=== PATIENT | male | born 1955 | race Caucasian/White ===

== ENCOUNTER → 2017-06-29 | Outpatient (CLI) | payer OTHER ==
[~2017-06-29] MED LIST: ACET1TAB86 PO; ASPI81 PO; ASPI81CH CHEW; ATOR40TA49 PO; BACITRACIN TOP OINT 15 GM TUBE ONE; BRIL90TA PO; COMMODE 3-IN-11 MIS; FLUO20CA12 PO; GELFOAM SIZE 100 ONE; GENTAMICIN SULFATE 80 MG/2 ML VIAL ONE; GETGO ROLLING W1 MI1; GNP5TAB6 PO; HYDR-3533 PO; LEVE250 PO; LEVE500T8 PO; LIDOCAINE 1%/EPINEPHrine 1:100,000 SOLN 50 ML VIAL ONE; LIPI40TA PO; LISI-515 PO; LISI5 PO; NAPR250T PO; QUET1TAB7 PO; ST JTAB PO; THROMBIN (TOPICAL) 5,000 UNIT VIAL ONE; TICA90 PO; VALP250 PO; [UNRECOGNIZED DRUG - REMARK]; ceFAZolin 2 GM PREMIX 50 ML ONE; shower chair
[2017-06-29 09:41] LABS: AUTOMATED NEUTROPHIL # 5.1 TH/MM3 (1.8-7.7); BASOPHIL # 0.1 TH/MM3 (0-0.2); BASOPHIL % 0.6 % (0.0-2.0); EOSINOPHIL # 0.6 TH/MM3 (0-0.4); EOSINOPHIL % 6.6 % (0.0-4.0); HEMATOCRIT 39.5 % (39.0-51.0); HEMO FLAGS DIFF FINAL; LYMPH % 25.2 % (9.0-44.0); LYMPHOCYTE # 2.1 TH/MM3 (1.0-4.8); MEAN CELL VOLUME 85.4 FL (80.0-100.0); MEAN CORPUSCULAR HEMOGLOBIN 27.6 PG (27.0-34.0); MEAN CORPUSCULAR HGB CONC 32.3 % (32.0-36.0); MONO % 6.7 % (0.0-8.0); NEUT % 60.9 % (16.0-70.0); PLATELET COUNT 215 TH/MM3 (150-450); RED BLOOD COUNT 4.62 MIL/MM3 (4.50-5.90); WHITE BLOOD COUNT 8.4 TH/MM3 (4.0-11.0)
[2017-06-29 09:41] LABS: BLOOD, URINE NEG (NEG); COMMENT (UR) CULT NOT INDICATED; CULTURE IF INDICATED CULT NOT INDICATED; GLUCOSE,URINE NEG (NEG); KETONE, URINE NEG (NEG); MUCUS URINE FEW /lpf (OCC); NITRITE,URINE NEG (NEG); PH, URINE 5.5 (5.0-8.5); URINE COLOR YELLOW (YELLW/STRAW)
[2017-06-29 09:50] LABS: APTT (PATIENT) 25.9 SEC (24.3-30.1); PROTHROMBIN TIME - PATIENT 10.7 SEC (9.8-11.6)
[2017-06-29 10:09] LABS: ANION GAP 7 MEQ/L (5-15); AST (GOT) 10 U/L (15-37); BICARBONATE 26.2 MEQ/L (21.0-32.0); BLOOD UREA NITROGEN 19 MG/DL (7-18); CHLORIDE 109 MEQ/L (98-107); GLOMERULAR FILTRATION RATE 82 ML/MIN (>89); GLUCOSE,FASTING 91 MG/DL (74-99); POTASSIUM 4.2 MEQ/L (3.5-5.1); SODIUM (NA) 142 MEQ/L (136-145)
[2017-06-29 10:22] LABS: ALKALINE PHOSPHATASE 74 U/L (45-117); ALT (GPT) 18 U/L (12-78); TOTAL BILIRUBIN ADULT 0.2 MG/DL (0.2-1.0)
--- NOTE | 2017-06-30 07:43 | EKG ---
Date Performed: 06/29/2017 Time Performed: 08:44:32 PTAGE: 61 years EKG: SINUS BRADYCARDIA POSSIBLE INFERIOR MYOCARDIAL INFARCTION, PROBABLY OLD BORDERLINE ECG Comp ared to PREVIOUS TRACING , ST-T wave abnormalities have improved. PREVIOUS TRACING 06/25/2016 DOCTOR: Irwin Neely Interpretating Date/Time 06/30/2017 07:42:30
== END ==
LOC: CPRE 07:52
PROVIDERS: ATTEND Neurological Surgery
DX: Z01.810 Encounter for preprocedural cardiovascular examination (principal); Z01.812 Encounter for preprocedural laboratory examination; M95.2 Other acquired deformity of head; S02.19XB Other fracture of base of skull, initial encounter for open fracture; R94.31 Abnormal electrocardiogram [ECG] [EKG]
CPT/HCPCS: 36415; 80053; 81001; 85025; 85610; 85730; 93005; J0690; J1580

== ENCOUNTER 2017-06-30 08:01 | Inpatient (IN) | payer OTHER ==
[~2017-06-30] VITALS: Ht 172.7 cm; Wt 69.2 kg
[~2017-06-30 08:01] MED LIST changes: -ASPI81 PO; -ATOR40TA49 PO; -BACITRACIN TOP OINT 15 GM TUBE ONE; -COMMODE 3-IN-11 MIS; -GELFOAM SIZE 100 ONE; -GENTAMICIN SULFATE 80 MG/2 ML VIAL ONE; -GETGO ROLLING W1 MI1; -HYDR-3533 PO; -LEVE500T8 PO; -LIDOCAINE 1%/EPINEPHrine 1:100,000 SOLN 50 ML VIAL ONE; -LISI5 PO; -ST JTAB PO; -THROMBIN (TOPICAL) 5,000 UNIT VIAL ONE; -TICA90 PO; -[UNRECOGNIZED DRUG - REMARK]; -ceFAZolin 2 GM PREMIX 50 ML ONE; -shower chair
[2017-06-30] MEDS ORDERED: CHLORHEXIDINE GLUCONATE 2 % 1 PACK (2 CLOTHS) TOPICAL PRN (10:45)
[2017-06-30] MEDS ORDERED: VANCOMYCIN HCL 1000 MG ON-CALL/NS 250 ML IV SCH ×2 (10:45)
[2017-06-30] MEDS ORDERED: INSULIN HUMAN REGULAR 1,000 UNITS/10 ML VIAL SQ PRN (10:45)
[2017-06-30] MEDS ORDERED: METOPROLOL TARTRATE 25 MG TAB PO PRN (10:45)
[2017-06-30] MEDS ORDERED: LACTATED RINGER'S 1000 ML IV PRN (10:45)
[2017-06-30] MEDS ORDERED: SODIUM CHLOR 0.9% 1000 ML INJ 1,000 ML IV SCH (10:45)
[2017-06-30] MEDS ORDERED: POVIDONE IODINE 5% (ANTISEPSIS KIT) 4 APPLICATIONS EACH NARE PRN (10:45)
[2017-06-30] MEDS ORDERED: SODIUM CHLORID 0.9% 500 ML IV PRN (10:45)
[2017-06-30] MEDS ORDERED: ARTIFICIAL TEARS OPTH OINT 3.5 APPLIC/3.5 GM TUBO ONE (12:15)
[2017-06-30] MEDS ORDERED: ACETAMINOPHEN 1000 MG/100 ML 100 ML IV ONE (12:15)
[2017-06-30] MEDS ORDERED: ceFAZolin 2 GM PREMIX 50 ML ONE (13:03)
[2017-06-30] MEDS ORDERED: BACITRACIN TOP OINT 15 GM TUBE ONE (13:03)
[2017-06-30] MEDS ORDERED: ACETAMINOPHEN/HYDROcodone 325 MG/10 MG TAB PO PRN ×2 (13:30)
[2017-06-30] MEDS ORDERED: ONDANSETRON HCL 4 MG/2 ML VIAL IV PUSH PRN (13:30)
[2017-06-30] MEDS ORDERED: POTASSIUM CHLOR 20 MEQ PREMIX 100 ML IV PRN (13:30)
[2017-06-30] MEDS ORDERED: MAGNESIUM SULFATE INJ 4 GM in SODIUM CHLORIDE 0.9% INJ 100 ML IV PRN (13:30)
[2017-06-30] MEDS ORDERED: SODIUM CHLORIDE 0.9% FLUSH 5 ML FLUSH IVF PRN (13:30)
[2017-06-30] MEDS ORDERED: BISACODYL 10 MG SUPP RECTAL PRN (13:30)
[2017-06-30] MEDS ORDERED: CALCIUM GLUCONATE 10% 1 GM/10 ML VIAL IV PRN (13:30)
[2017-06-30] MEDS ORDERED: NAPROXEN 250 MG TAB PO PRN (13:30)
[2017-06-30] MEDS ORDERED: MORPHINE SULFATE 4 MG/ML INJ IV PUSH PRN ×2 (13:30)
[2017-06-30] MEDS ORDERED: ACETAMINOPHEN 325 MG TAB PO PRN (13:30)
[2017-06-30] MEDS ORDERED: levETIRAcetam 500 MG/5 ML VIAL IV ONE (14:05)
[2017-06-30] MEDS ORDERED: GENTAMICIN SULFATE 80 MG/2 ML VIAL IRRIGATION ONE (14:56)
[2017-06-30] MEDS ORDERED: GELFOAM SIZE 100 TOPICAL ONE (14:58)
[2017-06-30] MEDS ORDERED: THROMBIN (TOPICAL) 5,000 UNIT VIAL TOPICAL ONE (14:59)
--- NOTE | 2017-06-30 15:12 | HHI.DCPOC ---
Discharge Care Plan Diagnosis: (1) S/P craniofacial reconstruction Goals to Promote Your Health * To prevent worsening of your condition and complications * To maintain your health at the optimal level Directions to Meet Your Goals Take your medications as prescribed Follow your dietary instruction Follow activity as directed Keep your appointments as scheduled Take your immunizations and boosters as scheduled If your symptoms worsen call your PCP, if no PCP go to Urgent Care Center or Emergency Room Smoking is Dangerous to Your Health. Avoid second hand smoke Call the 24-hour hour crisis hotline for domestic abuse at Lydia Gallardo Jun 30, 2017 15:12
--- NOTE | 2017-06-30 15:28 | PD.OP ---
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 A cranioplasty was indicated. The jcuz-yf-iula details of the procedure, indications, alternatives , risks and potential complications were fully discussed with the patient. The patient fully understood. All his questions were answered. No guarantees were given. The patient voiced requesting the procedure and provided informed consents. He was offered the alternative of delaying the procedure and continuing with nonsurgical management. DETAILS OF THE SURGICAL PROCEDURE The patient was endotracheally intubated and mechanically ventilated. A Narvaez catheter, bilateral TALIA hose and sequential compression devices were placed and kept throughout the procedure. The patient was positioned supine on a 3080 table over a soft mattress. The head was placed on a gel doughnut. All pressure points were carefully padded with egg crate mattress. The eyes were tapped shut after ointment was applied by the nesthesiologist to prevent corneal abrasion. A Kaycee hugger was placed over the exposed lower body to maintain control of the core body temperature. The old incision was marked and infiltrated with 1% lidocaine with epinephrine 1:100,000 dilution. The skin incision was made with a #10 blade. Small cranial bleeders were controlled with the bipolar and Kellee clips were applied to the scalp edges. Then, the scalp flap was carefully elevated and retracted anteriorly, exposing the edges of the craniectomy defect. Hemostasis was secured and the incision was irrigated with a large amount of antibiotic solution. Then, the scalp was covered with a moist Ray-Khadra soaked in antibiotic solution and fishhooks were applied to the incision. There was an area of dural defect which was reconstructed using a piece of Duragen. The patient's craniotomy flap was carefully washed with antibiotic solution and a reconstructive cranioplasty was performed by carefully placing autologous bone fragments which were carefully secured using striker plates and screws. The flap was secured using Jania plates and 4 mm screws. A solid placement of the bone was achieved with good very cosmetic result. The incision was thoroughly irrigated with antibiotic solution. The closure was then performed in layers. The temporalis fascia was closed with interrupted 0 Vicryl sutures. The galea was closed with interrupted 3-0 Vicryl sutures. [place] were applied to the skin. A 7 mm Rohan-Stanley drain was left in the subgaleal space and externalized through the a separate stab incision and secured with 3- 0 nylon. A sterile dressing was placed. At the end of the procedure the sponge, needle and instrument counts were all correct. Estimated blood loss was less than 100 cc. No blood transfusion was given. No intraoperative complications occurred. The patient received prophylactic antibiotics. The patient was then transferred to the recovery room in stable condition. Dagoberto Wong MD Jun 30, 2017 15:28
[2017-06-30] MEDS ORDERED: HYDR-3533 PO (15:55)
[2017-06-30] MEDS: QUEtiapine FUMARATE 25 MG TAB PO SCH (16:00)
[2017-06-30] MEDS ORDERED: DO NOT ADM ANY ANTICOAGULANT DRUGS PRN (16:02)
[2017-06-30] MEDS: NS + KCL 20 MEQ INJ 1,000 ML IV SCH ×2 (16:05→23:18)
[2017-06-30] MEDS: ceFAZolin 2 GM PREMIX 50 ML IV SCH (16:47)
[2017-06-30] MEDS ORDERED: *morphine SULFATE 8 MG/ML PERIprocedure ONLY ONE (19:03)
[2017-06-30 20:00] VITALS: BP_SYST 165; BP_SYST 182; BP_DIAS 79; BP_DIAS 82; PULSE 48; RESP 13; TEMP 97.8; O2SAT 99
[2017-06-30 21:00] VITALS: BP 168/83; PULSE 52; RESP 19; O2SAT 97
[2017-06-30] MEDS: TICAGRELOR 90 MG TAB PO SCH (21:00)
[2017-06-30] MEDS: VALPROIC ACID 250 MG CAP PO SCH (21:00)
[2017-06-30] MEDS ORDERED: ATORVASTATIN 40 MG TAB PO SCH (21:00)
[2017-06-30 22:00] VITALS: BP 172/84; PULSE 48; RESP 12; O2SAT 98
[2017-06-30] MEDS: levETIRAcetam 250 MG TAB PO SCH (22:08)
[2017-06-30] MEDS: SODIUM CHLORIDE 0.9% FLUSH 5 ML FLUSH IVF SCH (22:08)
[2017-06-30] MEDS: DOCUSATE SODIUM 100 MG CAP PO SCH (22:08)
[2017-06-30 23:00] VITALS: BP 165/79; PULSE 50; RESP 12; O2SAT 99
[2017-07-01] VITALS (7 sets, daily range): BP systolic 161–193; BP diastolic 84–91; PULSE 48–62; RESP 12–13; TEMP 97.4–97.9; O2SAT 99
[2017-07-01] MEDS: ENALAPRILAT 1.25 MG/ML VIAL IV PUSH PRN ×3 (00:25→08:10)
[2017-07-01] MEDS: ceFAZolin 2 GM PREMIX 50 ML IV SCH ×2 (01:00→08:10)
[2017-07-01] MEDS ORDERED: levETIRAcetam INJ 500 MG in SODIUM CHLORIDE 0.9% INJ 100 ML IV SCH (03:00)
[2017-07-01] MEDS: NS + KCL 20 MEQ INJ 1,000 ML IV SCH (03:18)
[2017-07-01 06:26] LABS: AUTOMATED NEUTROPHIL # 7.6 TH/MM3 (1.8-7.7); BASOPHIL % 0.3 % (0.0-2.0); EOSINOPHIL # 0.4 TH/MM3 (0-0.4); EOSINOPHIL % 4.2 % (0.0-4.0); HEMATOCRIT 36.1 % (39.0-51.0); HEMO FLAGS DIFF FINAL; LYMPHOCYTE # 1.5 TH/MM3 (1.0-4.8); MEAN CELL VOLUME 86.2 FL (80.0-100.0); MEAN CORPUSCULAR HEMOGLOBIN 27.6 PG (27.0-34.0); MONO % 5.8 % (0.0-8.0); NEUT % 74.7 % (16.0-70.0); PLATELET COUNT 171 TH/MM3 (150-450); RED BLOOD COUNT 4.19 MIL/MM3 (4.50-5.90); RED CELL DISTRIBUTION WIDTH 15.2 % (11.6-17.2); WHITE BLOOD COUNT 10.2 TH/MM3 (4.0-11.0)
[2017-07-01 06:57] LABS: BICARBONATE 21.5 MEQ/L (21.0-32.0); POTASSIUM 4.3 MEQ/L (3.5-5.1)
[2017-07-01] MEDS: QUEtiapine FUMARATE 25 MG TAB PO SCH ×2 (07:34)
[2017-07-01] MEDS: TICAGRELOR 90 MG TAB PO SCH (07:35)
[2017-07-01] MEDS: VALPROIC ACID 250 MG CAP PO SCH (08:09)
[2017-07-01] MEDS: levETIRAcetam 250 MG TAB PO SCH (08:10)
[2017-07-01] MEDS: DOCUSATE SODIUM 100 MG CAP PO SCH (08:10)
[2017-07-01] MEDS: SODIUM CHLORIDE 0.9% FLUSH 5 ML FLUSH IVF SCH (08:13)
[2017-07-01] MEDS ORDERED: PANTOPRAZOLE SODIUM 40 MG VIAL IVP SCH (09:00)
[2017-07-01] MEDS ORDERED: PANTOPRAZOLE SOD 40 MG DELAYED RELEASE TAB PO SCH (09:00)
[2017-07-01] MEDS ORDERED: FLUoxetine HCL 20 MG CAP PO SCH (09:00)
[2017-07-01] MEDS ORDERED: LISINOPRIL 20 MG TAB PO SCH (09:00)
[2017-07-01] MEDS ORDERED: cloNIDine HCL 0.1 MG TAB PO ONE (10:45)
[2017-07-01] MEDS ORDERED: BACITRACIN TOP OINT 15 GM TUBE TOPICAL ONE (11:00)
== END 2017-07-01 12:09 | disposition home or self-care (01) | DRG 517 ==
LOC: HSDI 09:40 → N03A 20:25
PROVIDERS: ADMIT Neurological Surgery; ATTEND Neurological Surgery
PROC: 0NS Head and Facial Bones, Reposition (ICD-10-PCS; 2017-06-30)
PROC: 0NS Head and Facial Bones, Reposition (ICD-10-PCS; 2017-06-30)
PROC: 00U20JZ Supplement Dura Mater with Synthetic Substitute, Open Approach (ICD-10-PCS; 2017-06-30)
PROC: 0NS104Z Reposition Frontal Bone with Internal Fixation Device, Open Approach (ICD-10-PCS; principal; 2017-06-30 12:00)
DX: M95.2 Other acquired deformity of head (principal); I10 Essential (primary) hypertension; E78.5 Hyperlipidemia, unspecified; I25.10 Atherosclerotic heart disease of native coronary artery without angina pectoris; F17.210 Nicotine dependence, cigarettes, uncomplicated; F32.9 Major depressive disorder, single episode, unspecified; Z95.5 Presence of coronary angioplasty implant and graft; Z87.820 Personal history of traumatic brain injury; I25.2 Old myocardial infarction
CPT/HCPCS: 80048; 85025; 87641; 94150; J0131; J0690; J1580; J1953; J2270; J3370; J3480; J7050; J7120

== ENCOUNTER 2017-07-02 00:43 | Inpatient (IN) | payer OTHER ==
[2017-07-02] VITALS (17 sets, daily range): BP systolic 110–218; BP diastolic 51–107; PULSE 57–98; RESP 12–26; TEMP 97.8–98.7; O2SAT 98–100
[~2017-07-02] VITALS: Ht 172.7 cm; Wt 68.8 kg
[~2017-07-02 00:43] MED LIST changes: -ACET1TAB86 PO; -GNP5TAB6 PO; +HYDR-3533 PO
--- NOTE | 2017-07-02 00:56 | PD ---
HPI Chief Complaint: Transfer for acute ICH. Time Seen by Provider: 00:53 Travel History International Travel<30 days: No Contact w/Intl Traveler<30days: No History of Present Illness HPI Patient is 61 year old male presents as transfer from OSH for evaluation of acute post-surgical ICH. Accepted by Dr. Lam. Patient aggrevated and confused on arrival. Per EMS seen at outside facility and has acute ICH. Patient unable to provide history. Keenly alert and awake but is GCS of 14 with significant confusion and some innapropriate words. Further history only obtained from records. There is no physician documentation from OSH. However, ems conveys that deidre arrived and was stroke alerted. According to records recently had craniotomy and skull flap replacement. PFSH Past Medical History Hx Anticoagulant Therapy: Yes Arthritis: Yes Asthma: No Autoimmune Disease: No Blood Disorders: No Anxiety: No Depression: No Heart Rhythm Problems: No Cancer: No Cardiac Catheterization: Yes Cardiovascular Problems: Yes ([place] TWO CARDIAC STENTS) High Cholesterol: No Chemotherapy: No Chest Pain: Yes (in past ) Congestive Heart Failure: No COPD: No Cerebrovascular Accident: No Coronary Artery Disease: Yes Diabetes: No Diminished Hearing: No Endocrine: No GERD: No Glaucoma: No Genitourinary: No Headaches: Yes Hepatitis: No Hiatal Hernia: No Immune Disorder: No Kidney Stones: No Musculoskeletal: Yes (KNEES GIVE OUT) Neurologic: Yes (NUMBNESS ONTOP OF CALFS, NUMBNESS R THUMB) Psychiatric: No Reproductive: No Respiratory: No Migraines: No Myocardial Infarction: Yes Radiation Therapy: No Renal Failure: No Seizures: No Sickle Cell Disease: No Sleep Apnea: No Thyroid Disease: No Ulcer: No Past Surgical History Abdominal Surgery: Yes AICD: No Arteriovenous Shunt: No Body Medical Devices: 2 CARDIAC STENT Cardiac Surgery: Yes (stents with SC's X2) Ear Surgery: No Endocrine Surgery: No Eye Surgery: No Genitourinary Surgery: No Gynecologic Surgery: No Insulin Pump: No Joint Replacement: No Neurologic Surgery: No Oral Surgery: No Pacemaker: No Thoracic Surgery: No Social History Alcohol Use: No Tobacco Use: Yes Substance Use: Yes (marijuana daily use, one cigarette daily) Allergies-Medications (Allergen,Severity, Reaction): Coded Allergies: No Known Allergies (Verified , 06/30/17) Reported Meds & Prescriptions Reported Meds & Active Scripts Active Lortab (Hydrocodone-Acetaminophen) 5-325 Mg Tab 1 Tab PO Q8HR PRN Naproxen 250 Mg Tab 250 Mg PO Q8HR PRN Quetiapine (Quetiapine Fumarate) 25 Mg Tab 50 Mg PO Q8H Fluoxetine (Fluoxetine HCl) 20 Mg Capsule 20 Mg PO DAILY Depakene (Valproic Acid) 250 Mg Cap 500 Mg PO Q12HR Lisinopril 20 Mg Tab 20 Mg PO DAILY Reported Keppra (Levetiracetam) 250 Mg Tab 250 Mg PO BID Brilinta (Ticagrelor) 90 Mg Tab 90 Mg PO BID Lipitor (Atorvastatin Calcium) 40 Mg Tab 40 Mg PO HS Aspirin 81 Mg Chew 81 Mg CHEW DAILY Review of Systems ROS Limitations: Altered Mental Status Physical Exam Exam Limitations: Altered Mental Status Narrative GENERAL: WD/WN post surgical dressing in place. SKIN: Warm and dry. HEAD: Post surgical dressing in place. Normocephalic. EYES: Pupils equal and round. No scleral icterus. No injection or drainage. ENT: No nasal bleeding or discharge. Mucous membranes pink and moist. NECK: Trachea midline. No JVD. CARDIOVASCULAR: Regular rate and rhythm. RESPIRATORY: No accessory muscle use. Clear to auscultation. Breath sounds equal bilaterally. GASTROINTESTINAL: Abdomen soft, non-tender, nondistended. Hepatic and splenic margins not palpable. MUSCULOSKELETAL: Extremities without clubbing, cyanosis, or edema. No obvious deformities. NEUROLOGICAL: Awake and alert. GCS of 14. confused, aggrevated, difficult to control PSYCHIATRIC: unable to properly assess. Data Data Orders Orders Admit Order (Ed Use Only) (07/02/17 ) Lorazepam Inj (Ativan Inj) (07/02/17 01:00) Restraints Non-Violent NGUYEN.Q3H (07/02/17 00:53) MDM Medical Decision Making Medical Screen Exam Complete: Yes Emergency Medical Condition: Yes Differential Diagnosis ICH, stroke, post surgical hemorrhage. Narrative Course Patient roomed in ER, d/w dr. lam on arrival, patient requiring restraint to prevent injury from fall and sedation with ativan. Patient to have repeat scan and admit to ICU. Dr. Lam to admit directly. Patient recommended for repeat ct by bob i agree. CD given to radiology for comparison. Diagnosis Primary Impression: Subarachnoid hemorrhage Admitting Information Admitting Physician Requests: Admit Condition: Serious Bill Grady MD Jul 02, 2017 00:56
[2017-07-02] MEDS ORDERED: LORazepam 2 MG/ML VIAL IV PUSH ONE (01:00)
[2017-07-02] MEDS ORDERED: MANNITOL 12.5 GM/50 ML VIAL IV SCH (01:15)
[2017-07-02] MEDS ORDERED: ONDANSETRON HCL 4 MG/2 ML VIAL IV PUSH PRN (01:15)
[2017-07-02] MEDS ORDERED: SODIUM CHLORIDE 0.9% FLUSH 5 ML FLUSH IVF PRN (01:15)
[2017-07-02] MEDS: levETIRAcetam INJ 500 MG in SODIUM CHLORIDE 0.9% INJ 100 ML IV SCH ×3 (01:30→21:34)
--- NOTE | 2017-07-02 01:34 | RADRPT ---
EXAM DATE/TIME: 07/02/2017 01:23 [facility] COMPARISON: No previous studies available for comparison. INDICATIONS : Altered mental status; transfer patient - bleed. RADIATION DOSE: 31.59 CTDIvol (mGy) MEDICAL HISTORY : Cardiovascular disease. Hypertension. Myocardial infarction.Head trauma. Coronary artery disease. SURGICAL HISTORY : None. ENCOUNTER: Initial ACUITY: 1 day PAIN SCALE: 0/10 LOCATION: cranial TECHNIQUE: Multiple contiguous axial images were obtained of the head. Using automated exposure control and adj ustment of the mA and/or kV according to patient size, radiation dose was kept as low as reasonably a chievable to obtain optimal diagnostic quality images. DICOM format image data is available electro nically for review and comparison. FINDINGS: The patient is status post left frontal parietal and temporal craniotomy. There is a moderate to large left subdural hematoma measuring up to approximately 8.6 x 1.5 cm in greatest AP and transvers e diameters. This is of mixed density with areas of low density and smaller more medial acute high-de nsity hemorrhage. There is a focal high density intraparenchymal hemorrhage centered in the left temp oral and parietal lobe measuring up to 3.6 x 2.5 cm. There is surrounding edema. There is mass effect with midline shift to the right of approximately 6 mm. And partial effacement of the left lateral ve ntricle. There is diffuse edema with effacement of the left frontal and parietal sulci. The posterior fossa and brainstem are intact. CONCLUSION: 1. Hyperdense intraparenchymal hemorrhage in the left temporal and parietal lobes with surrounding ed juliann. 2. Mixed density moderate to large left subdural hematoma. 3. Mass effect and midline shift to the right. 4. Postsurgical changes. Oli Ortega MD on July 02, 2017 at 1:28 Board Certified Radiologist. This report was verified electronically.
[2017-07-02] MEDS ORDERED: SODIUM CHLORIDE IV ONE (01:35)
[2017-07-02] MEDS ORDERED: FOSPHENYTOIN IV ONE (01:35)
[2017-07-02] MEDS ORDERED: IOHEXOL 350 MG/ML 10 ML VIAL (for RAD DIAG) IVCONTRAST ONE (05:12)
[2017-07-02] MEDS: QUEtiapine FUMARATE 25 MG TAB PO SCH ×3 (06:00→21:34)
[2017-07-02] MEDS ORDERED: HALOPERIDOL LACTATE 5 MG/ML AMP IV PUSH PRN (08:15)
[2017-07-02] MEDS ORDERED: DEXMEDETOMIDINE HCL 200 MCG/2 ML VIAL IV PUSH ONE (08:15)
[2017-07-02] MEDS ORDERED: DEXMEDETOMIDINE INJ 200 MCG in SODIUM CHLORIDE 0.9% INJ 50 ML IV PRN (08:15)
[2017-07-02] MEDS: LISINOPRIL 20 MG TAB PO SCH (09:00)
[2017-07-02] MEDS: DOCUSATE SODIUM 100 MG CAP PO SCH ×2 (09:00→21:00)
[2017-07-02] MEDS: SODIUM CHLORIDE 0.9% FLUSH 5 ML FLUSH IVF SCH ×2 (09:00→21:00)
[2017-07-02] MEDS: FLUoxetine HCL 20 MG CAP PO SCH (09:00)
[2017-07-02] MEDS: VALPROIC ACID 250 MG CAP PO SCH ×2 (09:00→21:34)
[2017-07-02] MEDS: MANNITOL 12.5 GM/50 ML VIAL IV SCH ×2 (09:14→15:53)
[2017-07-02] MEDS: PANTOPRAZOLE SODIUM 40 MG VIAL IVP SCH (09:16)
--- NOTE | 2017-07-02 09:43 | HHI.NSPN ---
Note Status Status: Progress Note Interval History Interval History Mr. Crain is a 61 year old male who underwent left frontal temporal parietal cranioplasty with replacement of skull flap on 06/30/17. His surgery went well without complications. He was discharged home yesterday in stable conditions. He was brought back to [place] ED last night due to worsening mental status. His reports they were sitting watching TV when he turned his head to hear and had incomprehensible speech. There were no shaking or seizure like activities. A repeat CT Head shows left subdural fluid collection with left temporal intraparenchymal hemorrhage with 6 mm midline shift. His blood pressure on arrival was 218/107. He is currently sedated on Precedex due to agitation. Critical care consulted, he will be started on a cardene drip. He moves all four extremities but reported to have confusion vs dysphasia. Labs, Micro, & Vital Signs Results Date Time Temp Pulse Resp B/P (MAP) Pulse Ox O2 Delivery O2 Flow Rate FiO2 07/02/17 06:00 95 07/02/17 04:00 70 07/02/17 04:00 98.1 70 12 115/66 (82) 99 07/02/17 03:00 73 17 131/67 (88) 99 07/02/17 02:45 97.8 84 26 138/72 (94) 99 07/02/17 01:01 93 22 218/107 (144) 100 Constitutional Vital Signs Date Time Temp Pulse Resp B/P (MAP) Pulse Ox O2 Delivery O2 Flow Rate FiO2 07/02/17 06:00 95 07/02/17 04:00 70 07/02/17 04:00 98.1 70 12 115/66 (82) 99 07/02/17 03:00 73 17 131/67 (88) 99 07/02/17 02:45 97.8 84 26 138/72 (94) 99 07/02/17 01:01 93 22 218/107 (144) 100 Review of Systems ROS Limitations: Clinical Condition, Altered Mental Status Physical Exam Mr. Crain is drowsy on Precedex. Arouses, confused, confused speech. Oriented to name only. Follows only few simple commands. Cranial nerve examination: pupils 3 mm round and reactive to light. Facial motor are normal and symmetrical. Neck is soft and supple Motor: moving all four extremities symmetrically, cannot assess detail exam due to clinical condition. Sensory examination: withdraws to local pain x 4 Bilateral plantar flexion response. Cerebellar examination cannot be assessed due to clinical condition. Medications Current Medications Current Medications Medications (Trade) Dose Ordered Sig/Jyothi Route PRN Reason Start Time Stop Time Status Last Admin Dose Admin IV Flush (NS Flush) 2 ml UNSCH PRN IVF FLUSH AFTER USING IV ACCESS 07/02/17 01:15 IV Flush (NS Flush) 2 ml BID IVF 07/02/17 09:00 07/02/17 09:00 Fosphenytoin Sodium (Cerebyx Inj) 200 mgpe Q12H IV 07/02/17 12:00 Docusate Sodium (Colace) 100 mg BID PO 07/02/17 09:00 Pantoprazole Sodium (Protonix Inj) 40 mg DAILY IVP 07/02/17 09:00 07/02/17 09:16 Ondansetron HCl (Zofran Inj) 4 mg Q6H PRN IV PUSH NAUSEA OR VOMITING 07/02/17 01:15 Fluoxetine HCl (PROzac) 20 mg DAILY PO 07/02/17 09:00 Acetaminophen/ Hydrocodone Bitart ([place] 5-325 Mg) 1 tab Q8HR PRN PO PAIN 07/02/17 01:15 Lisinopril (Prinivil) 20 mg DAILY PO 07/02/17 09:00 Quetiapine Fumarate (SEROquel) 50 mg Q8HR PO 07/02/17 06:00 Valproic Acid (Depakene) 500 mg Q12HR PO 07/02/17 09:00 Levetriacetam 500 mg/Sodium Chloride 105 ml @ 420 mls/hr Q12HR IV 07/02/17 01:30 Mannitol (Mannitol Inj) 12.5 gm Q6H IV 07/02/17 09:00 07/02/17 09:14 Haloperidol Lactate (Haldol Inj) 5 mg Q6H PRN IV PUSH agitation/ delirium 07/02/17 08:15 Dexmedetomidine HCl 200 mcg/ Sodium Chloride 52 ml @ 3.69 mls/hr TITRATE PRN IV SEDATION 07/02/17 08:15 Medical Decision Making MDM Remarks 61 y/o male underwent a left cranioplasty for replacement of skull flap on 06/30 presented back to ED with AMS, CT Head 07/02 with moderate left subdural fluid collection, and left temporal parietal intraparenchymal hemorrhage with 6 mm midline shift hypertensive urgency with blood pressure of 218/107 on arrival acute hemorrhagic CVA ?seizures Plan Plan Remarks CT Brain reviewed by Dr. Wong who recommends a craniotomy for evacuation of subdural and intraparenchymal hematoma will start on Mannitol 25 g, f/u serum os critical care consulted continue blood pressure control per CC keep NPO SCDs and TALIA for DVT prophlyaxis protonix for stress ulcer prophylaxis cont Keppra and Depakene, f/u depakene levels consents obtained from his over the phone Lydia Gallardo Jul 02, 2017 09:43
[2017-07-02] MEDS ORDERED: VANCOMYCIN HCL 1000 MG VIAL ONE (09:51)
[2017-07-02] MEDS ORDERED: THROMBIN (TOPICAL) 5,000 UNIT VIAL ONE (09:51)
[2017-07-02] MEDS ORDERED: ceFAZolin INJ 1,000 MG VIAL ONE (09:52)
[2017-07-02] MEDS ORDERED: GELFOAM SIZE 100 ONE (09:52)
[2017-07-02] MEDS ORDERED: BUPIVACAINE/EPINEPHRINE 0.25% 50 ML VIAL ONE (09:54)
--- NOTE | 2017-07-02 10:17 | HHI.HP ---
[facility] Primary Care Physician Shantanu Goodman DO Chief Complaint: Confusion History of Present Illness Mr. Crain is a 61 year old male who underwent left frontal temporal parietal cranioplasty with replacement of skull flap on 06/30/17. His surgery went well without complications. He was discharged home yesterday in stable conditions. He was brought back to [place] ED last night due to worsening mental status. A repeat CT Head shows left subdural fluid collection with left temporal intraparenchymal hemorrhage with 6 mm midline shift. He is currently sedated on Precedex due to agitation. He moves all four extremities but reported to have confusion vs dysphasia. Past Family Social History Allergies: Coded Allergies: No Known Allergies (Verified , 06/30/17) Past Medical History Hx Anticoagulant Therapy: Yes Arthritis: Yes Asthma: No Autoimmune Disease: No Blood Disorders: No Anxiety: No Depression: No Heart Rhythm Problems: No Cancer: No Cardiac Catheterization: Yes Cardiovascular Problems: Yes ([place] TWO CARDIAC STENTS) High Cholesterol: No Chemotherapy: No Chest Pain: Yes (in past ) Congestive Heart Failure: No COPD: No Cerebrovascular Accident: No Coronary Artery Disease: Yes Diabetes: No Diminished Hearing: No Endocrine: No GERD: No Glaucoma: No Genitourinary: No Headaches: Yes Hepatitis: No Hiatal Hernia: No Immune Disorder: No Kidney Stones: No Musculoskeletal: Yes (KNEES GIVE OUT) Neurologic: Yes (NUMBNESS ONTOP OF CALFS, NUMBNESS R THUMB) Psychiatric: No Reproductive: No Respiratory: No Migraines: No Myocardial Infarction: Yes Radiation Therapy: No Renal Failure: No Seizures: No Sickle Cell Disease: No Sleep Apnea: No Thyroid Disease: No Ulcer: No Past Surgical History Abdominal Surgery: Yes AICD: No Arteriovenous Shunt: No Body Medical Devices: 2 CARDIAC STENT Cardiac Surgery: Yes (stents with RI's X2) Ear Surgery: No Endocrine Surgery: No Eye Surgery: No Genitourinary Surgery: No Gynecologic Surgery: No Insulin Pump: No Joint Replacement: No Neurologic Surgery: No Oral Surgery: No Pacemaker: No Thoracic Surgery: No Family History His family history was reviewed and non conrtibutory Social History Smoking Status: Never Smoker Alcohol Use: Denies Use Substance Use: Yes (marijuana daily use, one cigarette daily) Physical Exam Vital Signs Vital Signs Date Time Temp Pulse Resp B/P (MAP) Pulse Ox O2 Delivery O2 Flow Rate FiO2 07/02/17 06:00 95 07/02/17 04:00 70 07/02/17 04:00 98.1 70 12 115/66 (82) 99 07/02/17 03:00 73 17 131/67 (88) 99 07/02/17 02:45 97.8 84 26 138/72 (94) 99 07/02/17 01:01 93 22 218/107 (144) 100 Physical Exam The patient is alert, confused, oriented to self. Mild expressive aphasia Cranial nerve examination demonstrates the pupils to be equal, round, and reactive to light. Extra-ocular movements are intact with normal convergence. Facial motor function appears normal and symmetrical. Face sensation, hearing, visual renee, and olfaction can not be assessed properly due to the patients condition. The patient has an intact corneal reflex and a gag reflex. Sternocleidomastoid and trapezius have normal and symmetrical strength. Other cranial nerves are intact. Neck is soft and supple. Cervical spine has a normal range of motion of the cervical spine without pain. There is no tenderness to palpation to the spinous processes or paraspinal muscles. Muscle testing reveals normal bulk and tone overall without rigidity, spasticity , fasciculations, or atrophy. Muscle strength is 5/5 in all muscle groups of both upper and lower extremities. Deep tendon reflexes are 1+ and symmetrical in the biceps, triceps, and brachioradialis, bilaterally, in the upper extremities. In the lower extremities , the patellar and Achilles are 1+, bilaterally. There is a bilateral plantar flexion response. Hoffmanns sign is negative. There is no clonus or other abnormal reflexes noted. Cerebellar examination is limited due to the patient condition, but no obvious deficits are noted. Laboratory Laboratory Tests Test 07/02/17 02:00 07/02/17 02:50 Blood Urea Nitrogen 9 Creatinine 0.80 Random Glucose 116 Calcium Level 8.9 Sodium Level 140 Potassium Level 4.0 Chloride Level 107 Carbon Dioxide Level 27.0 Anion Gap 6 Estimat Glomerular Filtration Rate 99 Serum Osmolality 293 Nasal Screen MRSA (PCR) MRSA NOT DETECTED Result Diagram: 07/02/17 0200 Caprini VTE Risk Assessment Caprini Risk Assessment Model Point Value = 1 Point Value = 2 Point Value = 3 Point Value = 5 Age 41-60 Minor surgery BMI > 25 kg/m2 Swollen legs Varicose veins or History of unexplained or recurrent spontaneous Oral contraceptives or hormone replacement Sepsis (< 1 month) Serious lung disease, including pneumonia (< 1 month) Abnormal pulmonary function Acute myocardial infarction Congestive heart failure (< 1 month) History of inflammatory bowel disease Medical patient at bed rest Age 61-74 Arthroscopic surgery Major open surgery (> 45 min) Laparoscopic surgery (> 45 min) Malignancy Confined to bed (> 72 hours) Immobilizing plaster cast Central venous access Age >= 75 History of VTE Family history of VTE Factor V Leiden Prothrombin 44510B Lupus anticoagulant Anticardiolipin antibodies Elevated serum homocysteine Heparin-induced thrombocytopenia Other congenital or acquired thrombophilia Stroke (< 1 month) Elective arthroplasty Hip, pelvis, or leg fracture Acute spinal cord injury (< 1 month) Prophylaxis Regimen Total Risk Factor Score Risk Level Prophylaxis Regimen 0-1 Low Early ambulation 2 Moderate Order ONE of the following: *Sequential Compression Device (SCD) *Heparin 5000 units SQ BID 3-4 Higher Order ONE of the following medications: *Heparin 5000 units SQ TID *Enoxaparin/Lovenox 40 mg SQ daily (WT < 150 kg, CrCl > 30 mL/min) *Enoxaparin/Lovenox 30 mg SQ daily (WT < 150 kg, CrCl > 10-29 mL/min) *Enoxaparin/Lovenox 30 mg SQ BID (WT < 150 kg, CrCl > 30 mL/min) AND/OR *Sequential Compression Device (SCD) 5 or more Highest Order ONE of the following medications: *Heparin 5000 units SQ TID (Preferred with Epidurals) *Enoxaparin/Lovenox 40 mg SQ daily (WT < 150 kg, CrCl > 30 mL/min) *Enoxaparin/Lovenox 30 mg SQ daily (WT < 150 kg, CrCl > 10-29 mL/min) *Enoxaparin/Lovenox 30 mg SQ BID (WT < 150 kg, CrCl > 30 mL/min) AND *Sequential Compression Device (SCD) Assessment and Plan Assessment and Plan 61 y/o male underwent a left cranioplasty for replacement of skull flap on 06/30 presented back to ED with AMS, CT Head 07/02 with moderate left subdural fluid collection with 6 mm midline shift Attending Statement CT Brain reviewed. I recommend a craniotomy for evacuation of subdural hematoma. Informed consent obtained frm his over the phone On Mannitol 25 g every 6 hrts, f/u serum os COnsinue seizure prophylaxis critical care consultation HTN. Treat with antihypertensives as needed Diet NPO protonix for stress ulcer prophylaxis SCDs and TALIA for DVT prophlyaxis Dagoberto Wong MD Jul 02, 2017 10:17
--- NOTE | 2017-07-02 10:52 | PD.CONS ---
[facility] Service Critical Care Medicine Consult Requested By Primary Care Physician Shantanu Goodman DO History of Present Illness 07/02: Mr. Crain is a 61 year old male who underwent left frontal temporal parietal cranioplasty with replacement of skull flap on 06/30/17. He tolerated procedure well was extubated and subsequently admitted to [facility].. He was discharged home on 07/01 by neurosurgery. He was brought back to [place] ED last night due to worsening mental status. A repeat CT Head shows left subdural fluid collection with left temporal intraparenchymal hemorrhage with 6 mm midline shift. Patient was admitted by neurosurgery to [facility] and critical care consult was requested. When I evaluated the patient he was agitated with some speech difficulty and disoriented. I ordered Haldol on Precedex however patient calmed down prior to administration of these meds. He had been initiated on anticonvulsants and mannitol per neurosurgery. I spoke with Dr. Wong personally regarding patient's clinical status and CT findings. He will be emergently taking him to the OR for evacuation of subdural hematoma and intraparenchymal hemorrhage. History was obtained by reviewing records and discussion with nursing staff and Dr. Wong. Past Medical History Hx Anticoagulant Therapy: Yes Arthritis: Yes Asthma: No Autoimmune Disease: No Blood Disorders: No Anxiety: No Depression: No Heart Rhythm Problems: No Cancer: No Cardiac Catheterization: Yes Cardiovascular Problems: Yes ([place] TWO CARDIAC STENTS) High Cholesterol: No Chemotherapy: No Chest Pain: Yes (in past ) Congestive Heart Failure: No COPD: No Cerebrovascular Accident: No Coronary Artery Disease: Yes Diabetes: No Diminished Hearing: No Endocrine: No GERD: No Glaucoma: No Genitourinary: No Headaches: Yes Hepatitis: No Hiatal Hernia: No Immune Disorder: No Kidney Stones: No Musculoskeletal: Yes (KNEES GIVE OUT) Neurologic: Yes (NUMBNESS ONTOP OF CALFS, NUMBNESS R THUMB) Psychiatric: No Reproductive: No Respiratory: No Migraines: No Myocardial Infarction: Yes Radiation Therapy: No Renal Failure: No Seizures: No Sickle Cell Disease: No Sleep Apnea: No Thyroid Disease: No Ulcer: No Past Surgical History Abdominal Surgery: Yes AICD: No Arteriovenous Shunt: No Body Medical Devices: 2 CARDIAC STENT Cardiac Surgery: Yes (stents with MN's X2) Ear Surgery: No Endocrine Surgery: No Eye Surgery: No Genitourinary Surgery: No Gynecologic Surgery: No Insulin Pump: No Joint Replacement: No Neurologic Surgery: No Oral Surgery: No Pacemaker: No Thoracic Surgery: No Social History Alcohol Use: No Tobacco Use: Yes Substance Use: Yes (marijuana daily use, one cigarette daily) Allergies-Medications (Allergen,Severity, Reaction): Coded Allergies: No Known Allergies (Verified , 06/30/17) Reported Meds & Prescriptions Reported Meds & Active Scripts Active Lortab (Hydrocodone-Acetaminophen) 5-325 Mg Tab 1 Tab PO Q8HR PRN Naproxen 250 Mg Tab 250 Mg PO Q8HR PRN Quetiapine (Quetiapine Fumarate) 25 Mg Tab 50 Mg PO Q8H Fluoxetine (Fluoxetine HCl) 20 Mg Capsule 20 Mg PO DAILY Depakene (Valproic Acid) 250 Mg Cap 500 Mg PO Q12HR Lisinopril 20 Mg Tab 20 Mg PO DAILY Reported Keppra (Levetiracetam) 250 Mg Tab 250 Mg PO BID Brilinta (Ticagrelor) 90 Mg Tab 90 Mg PO BID Lipitor (Atorvastatin Calcium) 40 Mg Tab 40 Mg PO HS Aspirin 81 Mg Chew 81 Mg CHEW DAILY Review of Systems ROS Limitations: Clinical Condition Physical Exam Vital Signs Vital Signs Date Time Temp Pulse Resp B/P (MAP) Pulse Ox O2 Delivery O2 Flow Rate FiO2 07/02/17 06:00 95 07/02/17 04:00 70 07/02/17 04:00 98.1 70 12 115/66 (82) 99 07/02/17 03:00 73 17 131/67 (88) 99 07/02/17 02:45 97.8 84 26 138/72 (94) 99 07/02/17 01:01 93 22 218/107 (144) 100 Physical Exam HEENT/Neuro: No pallor or icterus, tongue moist, pupils 3 mm bilaterally reacting actively to light, Awake alert, agitated and disoriented with speech disturbance, nonfocal grossly, moving all 4 extremities Neck: No JVD Chest/pulmonary: CTA bilaterally Cardiovascular: S1-S2 regular no gallop or murmur GI/abdomen: Soft, nontender, bowel sounds present Extremities: Warm bilaterally, no edema Laboratory Laboratory Tests Test 07/02/17 02:00 07/02/17 02:50 Blood Urea Nitrogen 9 Creatinine 0.80 Random Glucose 116 Calcium Level 8.9 Sodium Level 140 Potassium Level 4.0 Chloride Level 107 Carbon Dioxide Level 27.0 Anion Gap 6 Estimat Glomerular Filtration Rate 99 Serum Osmolality 293 Nasal Screen MRSA (PCR) MRSA NOT DETECTED Result Diagram: 07/02/17 0200 Imaging Laboratory Tests Test 07/02/17 02:00 07/02/17 02:50 Blood Urea Nitrogen 9 MG/DL Creatinine 0.80 MG/DL Random Glucose 116 MG/DL Calcium Level 8.9 MG/DL Sodium Level 140 MEQ/L Potassium Level 4.0 MEQ/L Chloride Level 107 MEQ/L Carbon Dioxide Level 27.0 MEQ/L Anion Gap 6 MEQ/L Estimat Glomerular Filtration Rate 99 ML/MIN Serum Osmolality 293 MOSM/KG Nasal Screen MRSA (PCR) MRSA NOT DETECTED Assessment and Plan Assessment and Plan 61-year-old male with: TBI status post left cranioplasty 06/30 Left-sided Subdural hematoma (under flap) left sided intraparenchymal hemorrhage with left to right midline shift Cerebral edema CAD Plan: Neuro: Continue anticonvulsants per neurosurgery. Started on IV mannitol. Taken to OR for evacuation of subdural hematoma and intraparenchymal hematoma by Dr. Wong. Continue neurochecks per ICU protocol. Haldol when necessary for agitation/delirium. Precedex drip as needed. Cardiovascular: Hold all antiplatelet agents. Labetalol when necessary to keep SBP less than 140 mm Hg Pulmonary: Supplemental O2 as needed. Currently protecting airway. Bronchodilators as needed GI/liver: Nothing by mouth for now. Renal/: IV hydration, strict intake output, monitor and replete electrolytes, follow BUN/creatinine. Heme: Follow CBC ID: Perioperative antibiotic prophylaxis per neurosurgery Endocrine: Watch for hyperglycemia, SSI for glycemic control if needed. Prophylaxis: SCDs. No heparin or Lovenox till cleared by neurosurgery in view of intracranial hemorrhage. Condition critical. Patient taken to OR for emergent evacuation of subdural hematoma. Time spent on critical care excluding procedures 40 minutes Kerwin Hernandez MD Jul 02, 2017 10:52
[2017-07-02] MEDS ORDERED: NITROGLYCERIN-D5W 50 MG/250 ML 250 ML ONE (11:01)
[2017-07-02 11:02] LABS: HEMATOCRIT 28.9 % (39.0-51.0); MEAN CELL VOLUME 84.3 FL (80.0-100.0); MEAN CORPUSCULAR HEMOGLOBIN 28.5 PG (27.0-34.0); MEAN CORPUSCULAR HGB CONC 33.8 % (32.0-36.0); PLATELET COUNT 162 TH/MM3 (150-450); RED BLOOD COUNT 3.43 MIL/MM3 (4.50-5.90); RED CELL DISTRIBUTION WIDTH 15.3 % (11.6-17.2); REVIEW FLAG FINAL; WHITE BLOOD COUNT 8.2 TH/MM3 (4.0-11.0)
[2017-07-02 11:24] LABS: APTT (PATIENT) 28.7 SEC (24.3-30.1); PROTHROMBIN TIME - PATIENT 11.4 SEC (9.8-11.6)
[2017-07-02] MEDS ORDERED: FUROSEMIDE 40 MG/4 ML VIAL ONE (11:24)
[2017-07-02] MEDS ORDERED: SODIUM CHLOR 0.9% 250 ML INJ 250 ML IV ONE (12:00)
[2017-07-02] MEDS ORDERED: ESMOLOL HCL 100 MG/10 ML VIAL IV ONE (12:00)
[2017-07-02] MEDS ORDERED: MIDAZOLAM HCL 2 MG/2 ML VIAL IV ONE (12:00)
[2017-07-02] MEDS ORDERED: ONDANSETRON HCL 4 MG/2 ML VIAL IV PUSH ONE (12:00)
[2017-07-02] MEDS ORDERED: LIDOCAINE HCL 1% PF 5 ML AMPULE OTHER ONE (12:00)
[2017-07-02] MEDS ORDERED: PHENYLEPHRINE HCL 10 MG/ML VIAL IV ONE (12:00)
[2017-07-02] MEDS ORDERED: ePHEDrine/NS 25 MG/5 ML SYR IV ONE (12:00)
[2017-07-02] MEDS ORDERED: NORMOSOL R INJ 1,000 ML IV ONE (12:00)
[2017-07-02] MEDS ORDERED: PROPOFOL 200 MG/20 ML AMP IV ONE (12:00)
[2017-07-02] MEDS ORDERED: ROCURONIUM INJ 50 MG/5 ML VIAL IV ONE (12:00)
[2017-07-02] MEDS ORDERED: DEXAMETHASONE SOD PHOS 4 MG/ML VIAL IV ONE (12:00)
[2017-07-02] MEDS ORDERED: PHENYLEPH/NS 1000 MCG/10 ML SYR IV ONE (12:00)
--- NOTE | 2017-07-02 12:25 | RADRPT ---
EXAM DATE/TIME: 07/02/2017 05:02 [facility] COMPARISON: No previous studies available for comparison. INDICATIONS : Subdural hematoma. IV CONTRAST: 100 cc Omnipaque 350 (iohexol) IV ; Cumulative dose for multiple exams. RADIATION DOSE: 13.43 CTDIvol (mGy) ; Combined studies MEDICAL HISTORY : Myocardial infarction. Cardiovascular disease SURGICAL HISTORY : Craniotomy. ENCOUNTER: Subsequent ACUITY: 1 day PAIN SCALE: Non-responsive LOCATION: neck Elevated flow velocities and ICA/CCA ratios have been found to correlate with increased degrees of vessel stenosis, calculated as percentage of diameter relative to a normal segment of distal ICA/CCA. TECHNIQUE: Volumetric scanning was performed using a multirow detector CT scanner. The data was post processed with a variety of visualization algorithms including full-volume maximum intensity projection, multip lanar sliding thin-slab reformation, curved-planar reformation, and surface-rendering techniques. Us ing automated exposure control and adjustment of the mA and/or kV according to patient size, radiatio n dose was kept as low as reasonably achievable to obtain optimal diagnostic quality images. DICOM f ormat image data is available electronically for review and comparison. FINDINGS: AORTIC ARCH: There is a three-vessel origin of the great vessels from the aorta. Mild partially calcified atheroma tous plaque is seen involving the origin of the brachiocephalic, left common carotid, and left subcla vian arteries. 10% luminal narrowing seen at each location. RIGHT CAROTID: The common carotid artery is patent. Noncalcified atheromatous plaque is seen involving the origin of the ICA. Utilizing NASCET criteria there is a 50% stenosis. No ulceration observed. The more cephala d portion of the extracranial ICA and ECA are patent. LEFT CAROTID: The common carotid artery is patent. Calcified plaque is seen involving the origin of the ICA. Utiliz ing NASCET criteria there is a 40% stenosis of the ICA origin. No ulceration observed. The more cepha lad portion of the extracranial ICA and ECA are patent. VERTEBRALS: The right vertebral artery is dominant. No stenotic lesions are seen. Left craniotomy defect. Left subdural fluid collection in the left parietal intraparenchymal hemorrha ge described in the CT of the brain report. CONCLUSION: 1. 50% stenosis the right ICA origin and 40% stenosis of the left ICA origin. 2. Dominant right vertebral artery that is patent. 3. Please see the CT of the brain reported separately. King De Santiago Jr., MD on July 02, 2017 at 12:15 Board Certified Radiologist. This report was verified electronically.
--- NOTE | 2017-07-02 12:36 | RADRPT ---
EXAM DATE/TIME: 07/02/2017 05:02 [facility] COMPARISON: No previous studies available for comparison. INDICATIONS : Follow up intracranial hemorrhage. IV CONTRAST: 100 cc Omnipaque 350 (iohexol) IV ; Cumulative dose for multiple exams. RADIATION DOSE: 13.43 CTDIvol (mGy) ; Combined studies MEDICAL HISTORY : Myocardial infarction. Cardiovascular disease SURGICAL HISTORY : Craniotomy. ENCOUNTER: Subsequent ACUITY: 1 day PAIN SCALE: Non-responsive LOCATION: cranial TECHNIQUE: Volumetric scanning was performed using a multi-row detector CT scanner. The data was post processed with a variety of visualization algorithms including full volume maximum intensity projection, multi -planar sliding thin slab reformation, curved planar reformation, and surface rendering techniques. Using automated exposure control and adjustment of the mA and/or kV according to patient size, radiat ion dose was kept as low as reasonably achievable to obtain optimal diagnostic quality images. DICO M format image data is available electronically for review and comparison. FINDINGS: There is excellent visualization of the major intracranial arteries out to the second-order branch ve ssels. There is no evidence for aneurysm, vessel truncation or stenosis, and no evidence for vascula r malformation. See the CT of the brain reported separately. CONCLUSION: Normal MRA examination. Please see the CT of the brain reported separately. King De Santiago Jr., MD on July 02, 2017 at 12:33 Board Certified Radiologist. This report was verified electronically.
[2017-07-02 13:19] LABS: BLOOD GAS BASE EXCESS -2.1 mmol/L (-2-2); BLOOD GAS CARBOXYHEMOGLOBIN 1.4 % (0-4); BLOOD GAS HCO3 22 mmol/L (22-26); BLOOD GAS METHEMOGLOBIN 1.1 % (0-2); BLOOD GAS O2 HGB SATURATION 97 % (90-100); BLOOD GAS OXYGEN CONTENT 12.5 Vol % (12.0-20.0); BLOOD GAS PCO2 38 mmHg (38-42); BLOOD GAS PO2 227 mmHg (61-120); BLOOD GAS TOTAL HGB 8.7 G/DL (12.0-16.0); CRITICAL VALUE NO; DRAW SITE ART LINE; FIO2 50 %; OXYGEN DEVICE VENTILATOR; STAT NO; TEMP CORR TO 98.6
[2017-07-02] MEDS ORDERED: LABETALOL HCL 100 MG/20 ML VIAL ONE (13:25)
[2017-07-02] MEDS ORDERED: LABETALOL HCL 100 MG/20 ML VIAL IV PUSH PRN (13:30)
[2017-07-02] MEDS ORDERED: niCARdipine INJ 25 MG in SODIUM CHLOR 0.9% 250 ML INJ 240 ML IV PRN (13:30)
[2017-07-02] MEDS: FOSPHENYTOIN SODIUM 100 MG PE/2 ML VIAL IV SCH (15:53)
[2017-07-02] MEDS: SODIUM CHLOR 0.9% 1000 ML INJ 1,000 ML IV SCH (16:00)
--- NOTE | 2017-07-02 17:51 | PD.OP ---
Operative Report Date of Surgery: Jul 03, 2017 Preoperative Diagnosis: Temporal intracerebral hemorrhage Postoperative Diagnosis: Temporal intracerebral hemorrhage Procedure: Left frontotemporoparietal craniotomy, evacuation of inracerebral hemorrhage Anesthesia: general Surgeon: Dagoberto Wong [employer] Specialist(s): Oli Operation and Findings: DETAILS OF THE SURGICAL PROCEDURE After the induction of general anesthesia the patient was endotracheally intubated and mechanically ventilated. A Narvaez catheter, bilateral TALIA hose and sequential compression devices were placed and kept throughout the procedure. The patient was positioned supine on a 3080 table over a soft mattress. The head was placed on a gel doughnut. All pressure points were carefully padded with egg crate mattress. The eyes were tapped shut after ointment was applied by the anesthesiologist to prevent corneal abrasion. A Kaycee hugger was placed over the exposed lower body to maintain control of the core body temperature. The frontotemporal parietal area was shaved, prepped and draped in the usual sterile fashion. A standard inverted question vick incision was outlined on the scalp over the prior incision. The sutures from the skin were cut with a #10 blade down to the level of the periosteum in the frontoparietal region and to the temporalis fascia in the temporal region. Kellee clips were applied to the scalp. Using a Bovie, the temporalis fascia and muscle were incised and a subperiosteal dissection was performed reflecting the scalp flap anteriorly. The scalp was covered with a moist sponge and held in position using fish hooks. The Midas Óscar was brought to the field and a bur hole was made in the temporal region using the craniotome attachment. Then, using the footplate attachment, a large frontotemporoparietal craniotomy flap was elevated. The dura was very thick, with significant scaring. The dura was opened with a 15 blade and metzembaun sissors and retracted with 4-0 Neurolon sutures attached to the fascia. Several layers of fibrous tissue were removed from the dura A left intracerebral hematoma was localized. A small corticotomy was performed with the bipolar and microscissors and the hematoma was readily found , causing significant mass effect. The hematoma was evacuated using microsurgical dissection, with the micro-bipolar forceps, microscissors, micro- suction, and gentle irrigation. The specimen was sent to the lab for histological analysis. Appropriate hemostasis was then secured using the bipolar head up operator helper. Then the incision was irrigated with saline solution. The dural edges were tacked to the bone. The craniotomy flap was then repositioned and secured in place using Striker plates and screws. A 7 millimeter Rohan-Stanley drain was then left in the subgaleal space and externalized through a separate stab incision. The incision was then closed in layers. 0 Vicryl in interrupted sutures were used to close the temporalis fascia. The galea was closed with interrupted 3- 0 Vicryl. [place] were applied to the skin. The drain was secured with a 3-0 nylon. At the end of the procedure, the sponge, needle and instrument counts were all correct. Estimated blood loss was less than 100 cc. No blood transfusion was given. No intraoperative complications occurred. The patient received prophylactic antibiotics. The patient was then transferred to the recovery room in stable condition. Dagoberto Wong MD Jul 02, 2017 17:51
[2017-07-03] VITALS (15 sets, daily range): BP systolic 124–156; BP diastolic 46–84; PULSE 64–78; RESP 11–17; TEMP 98.1–98.8; O2SAT 97–100
[2017-07-03] MEDS: MANNITOL 12.5 GM/50 ML VIAL IV SCH ×5 (00:57→21:31)
[2017-07-03] MEDS: FOSPHENYTOIN SODIUM 100 MG PE/2 ML VIAL IV SCH ×2 (00:58→12:29)
[2017-07-03] MEDS: SODIUM CHLOR 0.9% 1000 ML INJ 1,000 ML IV SCH ×2 (03:42→15:41)
[2017-07-03 04:39] LABS: BASOPHIL % 0.3 % (0.0-2.0); EOSINOPHIL # 0.2 TH/MM3 (0-0.4); EOSINOPHIL % 2.7 % (0.0-4.0); LYMPH % 26.8 % (9.0-44.0); LYMPHOCYTE # 2.2 TH/MM3 (1.0-4.8); MEAN CELL VOLUME 85.1 FL (80.0-100.0); MEAN CORPUSCULAR HEMOGLOBIN 27.8 PG (27.0-34.0); MEAN CORPUSCULAR HGB CONC 32.6 % (32.0-36.0); NEUT % 62.2 % (16.0-70.0); PLATELET COUNT 132 TH/MM3 (150-450); RED BLOOD COUNT 2.42 MIL/MM3 (4.50-5.90); RED CELL DISTRIBUTION WIDTH 15.3 % (11.6-17.2)
[2017-07-03 04:48] LABS: HEMATOCRIT 20.6 % (39.0-51.0); HEMO FLAGS DIFF FINAL
[2017-07-03 04:55] LABS: ANION GAP 11 MEQ/L (5-15); AST (GOT) 11 U/L (15-37); BICARBONATE 23.3 MEQ/L (21.0-32.0); BLOOD UREA NITROGEN 8 MG/DL (7-18); CHLORIDE 108 MEQ/L (98-107); GLOMERULAR FILTRATION RATE 149 ML/MIN (>89); POTASSIUM 3.8 MEQ/L (3.5-5.1); SODIUM (NA) 142 MEQ/L (136-145)
[2017-07-03 04:59] LABS: ALKALINE PHOSPHATASE 56 U/L (45-117); ALT (GPT) 10 U/L (12-78); TOTAL BILIRUBIN ADULT 0.2 MG/DL (0.2-1.0)
--- NOTE | 2017-07-03 05:54 | RADRPT ---
EXAM DATE/TIME: 07/03/2017 05:01 [facility] COMPARISON: CT BRAIN W/O CONTRAST, July 02, 2017, 1:23. INDICATIONS : Follow up subdural hematoma/cerebral edema. RADIATION DOSE: 46.79 CTDIvol (mGy) MEDICAL HISTORY : Cardiovascular disease. Hypertension. Myocardial infarction.Coronary artery disease. SURGICAL HISTORY : None. ENCOUNTER: Subsequent ACUITY: 1 day PAIN SCALE: Non-responsive LOCATION: cranial TECHNIQUE: Multiple contiguous axial images were obtained of the head. Using automated exposure control and adj ustment of the mA and/or kV according to patient size, radiation dose was kept as low as reasonably a chievable to obtain optimal diagnostic quality images. DICOM format image data is available electro nically for review and comparison. FINDINGS: CEREBRUM: There has been placement of a left-sided dural drain. Decreasing subdural hemorrhage measuring 7 mm i n thickness. Left temporal hemorrhage measures 2.5 x 1.9 cm, left prominent. Left-sided craniotomy ag ain seen. Minimal pneumocephaly. The ventricles are normal for age. No evidence of midline shift, ma ss lesion or acute infarction. POSTERIOR FOSSA: The cerebellum and brainstem are intact. The 4th ventricle is midline. The cerebellopontine angle i s unremarkable. EXTRACRANIAL: The visualized portion of the orbits is intact. SKULL: Left-sided craniotomy. CONCLUSION: 1. Decreasing left-sided subdural hemorrhage and left temporal hemorrhage. 2. Placement of a dural drain. 3. No significant midline shift. Ashok Anna MD on July 03, 2017 at 5:48 Board Certified Radiologist. This report was verified electronically.
[2017-07-03] MEDS: QUEtiapine FUMARATE 25 MG TAB PO SCH ×3 (06:53→21:31)
--- NOTE | 2017-07-03 08:21 | HHI.CCPN ---
Subjective Remarks/Hospital Course 07/02: Mr. Crain is a 61 year old male who underwent left frontal temporal parietal cranioplasty with replacement of skull flap on 06/30/17. He tolerated procedure well was extubated and subsequently admitted to [facility].. He was discharged home on 07/01 by neurosurgery. He was brought back to [place] ED last night due to worsening mental status. A repeat CT Head shows left subdural fluid collection with left temporal intraparenchymal hemorrhage with 6 mm midline shift. Patient was admitted by neurosurgery to [facility] and critical care consult was requested. When I evaluated the patient he was agitated with some speech difficulty and disoriented. I ordered Haldol on Precedex however patient calmed down prior to administration of these meds. He had been initiated on anticonvulsants and mannitol per neurosurgery. I spoke with Dr. Wong personally regarding patient's clinical status and CT findings. He will be emergently taking him to the OR for evacuation of subdural hematoma and intraparenchymal hemorrhage. History was obtained by reviewing records and discussion with nursing staff and Dr. Wong. 07/03: Head CT today shows good evacuation of left SDH. Hgb 6.7. Objective Vital Signs Date Time Temp Pulse Resp B/P (MAP) Pulse Ox O2 Delivery O2 Flow Rate FiO2 07/03/17 07:00 Room Air 07/03/17 06:00 70 07/03/17 03:00 98.6 14 133/60 (84) 07/02/17 23:00 99 07/02/17 13:30 21 Intake and Output 07/03/17 07/03/17 07/04/17 08:00 16:00 00:00 Intake Total 1632 ml Output Total 880 ml Balance 752 ml Result Diagram: 07/03/17 0323 07/03/17 0323 Other Results Laboratory Tests Test 07/02/17 13:10 Blood Gas Puncture Site ART LINE Blood Gas Patient Temperature 98.6 Blood Gas HCO3 22 mmol/L (22-26) Blood Gas Base Excess -2.1 mmol/L (-2-2) Blood Gas Oxygen Saturation 97 % (90-100) Arterial Blood pH 7.38 (7.380-7.420) Arterial Blood Partial Pressure CO2 38 mmHg (38-42) Arterial Blood Partial Pressure O2 227 mmHg (61-120) Arterial Blood Oxygen Content 12.5 Vol % (12.0-20.0) Arterial Blood Carboxyhemoglobin 1.4 % (0-4) Arterial Blood Methemoglobin 1.1 % (0-2) Blood Gas Hemoglobin 8.7 G/DL (12.0-16.0) Oxygen Delivery Device VENTILATOR Blood Gas Ventilator Setting AC,12,500,PEEP5 Blood Gas Inspired Oxygen 50 % Imaging Laboratory Tests Test 07/02/17 02:00 07/02/17 02:50 Blood Urea Nitrogen 9 MG/DL Creatinine 0.80 MG/DL Random Glucose 116 MG/DL Calcium Level 8.9 MG/DL Sodium Level 140 MEQ/L Potassium Level 4.0 MEQ/L Chloride Level 107 MEQ/L Carbon Dioxide Level 27.0 MEQ/L Anion Gap 6 MEQ/L Estimat Glomerular Filtration Rate 99 ML/MIN Serum Osmolality 293 MOSM/KG Nasal Screen MRSA (PCR) MRSA NOT DETECTED Objective Remarks HEENT: No pallor or icterus, tongue moist, pupils 3 mm bilaterally reacting actively to light, Neck: No JVD, airway widely patent. Chest/pulmonary: CTA bilaterally Cardiovascular: S1-S2 regular no gallop or murmur GI/abdomen: Soft, nontender, bowel sounds present Extremities: Warm bilaterally, no edema Neuro: wake alert, agitated and disoriented with speech disturbance, nonfocal grossly, moving all 4 extremities A/P Assessment and Plan 61-year-old male with: TBI status post left cranioplasty 06/30 New left-sided subdural hematoma (under flap) left sided intraparenchymal hemorrhage with left to right midline shift Cerebral edema CAD Plan: Neuro: Continue AEDs. Continue IV mannitol. Continue neuro checks per ICU protocol. Haldol when necessary for agitation/delirium. Precedex drip as needed. Cardiovascular: Hold all antiplatelet agents. Labetalol when necessary to keep SBP less than 140 mm Hg Pulmonary: Supplemental O2 as needed. Currently protecting airway. Bronchodilators as needed GI/liver: Nothing by mouth for now. Swallow evaluation. Renal/: IV hydration, strict intake output, monitor and replete electrolytes, follow BUN/creatinine. Heme: Follow Hgb. Transfuse 1 units PRBC. ID: Perioperative antibiotic prophylaxis per neurosurgery Endocrine: Watch for hyperglycemia, SSI for glycemic control if needed. Prophylaxis: SCDs. No heparin or Lovenox till cleared by neurosurgery in view of intracranial hemorrhage. Pepcid. Overall impression: S/P urgent evacuation left subdural hematoma. Stable hemodynamics and respiratory status. Larry Ascencio MD Jul 03, 2017 08:21
[2017-07-03] MEDS: SODIUM CHLORIDE 0.9% FLUSH 5 ML FLUSH IVF SCH ×2 (08:30→21:00)
[2017-07-03] MEDS: DOCUSATE SODIUM 100 MG CAP PO SCH ×2 (08:30→21:32)
[2017-07-03] MEDS: levETIRAcetam INJ 500 MG in SODIUM CHLORIDE 0.9% INJ 100 ML IV SCH ×2 (08:46→21:31)
[2017-07-03] MEDS: PANTOPRAZOLE SODIUM 40 MG VIAL IVP SCH (08:46)
[2017-07-03] MEDS: FLUoxetine HCL 20 MG CAP PO SCH (08:47)
[2017-07-03] MEDS: LISINOPRIL 20 MG TAB PO SCH (08:47)
[2017-07-03] MEDS: VALPROIC ACID 250 MG CAP PO SCH ×2 (08:47→20:32)
--- NOTE | 2017-07-03 11:28 | HHI.NSPN ---
Note Status Status: Progress Note Interval History Interval History Mr. Crain is a 61 year old male who underwent left frontal temporal parietal cranioplasty with replacement of skull flap on 06/30/17. His surgery went well without complications. He was discharged home yesterday in stable conditions. He was brought back to [place] ED last night due to worsening mental status. His reports they were sitting watching TV when he turned his head to hear and had incomprehensible speech. There were no shaking or seizure like activities. A repeat CT Head shows left subdural fluid collection with left temporal intraparenchymal hemorrhage with 6 mm midline shift. His blood pressure on arrival was 218/107. He is currently sedated on Precedex due to agitation. Critical care consulted, he will be started on a cardene drip. He moves all four extremities but reported to have confusion vs dysphasia. 07/03: f/u CT Head completed. dysphasic, moves x 4 ext. hgb 6.8 this am. Labs, Micro, & Vital Signs Results Date Time Temp Pulse Resp B/P (MAP) Pulse Ox O2 Delivery O2 Flow Rate FiO2 07/03/17 11:09 98.5 78 11 137/58 98 07/03/17 08:00 98.4 68 14 141/84 (103) 100 07/03/17 07:00 Room Air 07/03/17 06:00 70 07/03/17 04:00 64 07/03/17 03:00 98.6 64 14 133/60 (84) 07/03/17 02:00 68 07/03/17 00:00 64 07/02/17 23:00 98.4 62 13 122/58 (79) 99 07/02/17 22:00 62 07/02/17 20:00 60 07/02/17 19:00 Room Air 07/02/17 19:00 98.3 60 12 116/52 (73) 07/02/17 18:49 67 167/80 07/02/17 18:00 57 07/02/17 16:00 64 07/02/17 15:00 98.2 61 12 110/51 (70) 99 07/02/17 14:00 60 07/02/17 13:30 100 Room Air 21 07/02/17 13:08 98 50 07/02/17 12:45 50 Constitutional Vital Signs Date Time Temp Pulse Resp B/P (MAP) Pulse Ox O2 Delivery O2 Flow Rate FiO2 07/03/17 11:09 98.5 78 11 137/58 98 07/03/17 08:00 98.4 68 14 141/84 (103) 100 07/03/17 07:00 Room Air 07/03/17 06:00 70 07/03/17 04:00 64 07/03/17 03:00 98.6 64 14 133/60 (84) 07/03/17 02:00 68 07/03/17 00:00 64 07/02/17 23:00 98.4 62 13 122/58 (79) 99 07/02/17 22:00 62 07/02/17 20:00 60 07/02/17 19:00 Room Air 07/02/17 19:00 98.3 60 12 116/52 (73) 07/02/17 18:49 67 167/80 07/02/17 18:00 57 07/02/17 16:00 64 07/02/17 15:00 98.2 61 12 110/51 (70) 99 07/02/17 14:00 60 07/02/17 13:30 100 Room Air 21 07/02/17 13:08 98 50 07/02/17 12:45 50 Review of Systems ROS Limitations: Speech Impaired Physical Exam Mr. Crain is arouses, dysphasic, repeats words. not following to commands. Cranial nerve examination: pupils 3 mm round and reactive to light. Facial motor are normal and symmetrical. Neck is soft and supple Motor: moving all four extremities grossly symmetrically, cannot assess detail exam due to clinical condition Sensory examination: withdraws to local pain x 4 and grimaces Bilateral plantar flexion response. Cerebellar examination cannot be assessed due to clinical condition. Surgical wound with clean head wrap dressing. SULEMA drains #1 with 55 cc output and #2 with 10 cc output overnight. Medications Current Medications Current Medications Medications (Trade) Dose Ordered Sig/Jyothi Route PRN Reason Start Time Stop Time Status Last Admin Dose Admin IV Flush (NS Flush) 2 ml UNSCH PRN IVF FLUSH AFTER USING IV ACCESS 07/02/17 01:15 IV Flush (NS Flush) 2 ml BID IVF 07/02/17 09:00 07/03/17 08:30 Fosphenytoin Sodium (Cerebyx Inj) 200 mgpe Q12H IV 07/02/17 12:00 07/03/17 12:29 Docusate Sodium (Colace) 100 mg BID PO 07/02/17 09:00 Pantoprazole Sodium (Protonix Inj) 40 mg DAILY IVP 07/02/17 09:00 07/03/17 08:46 Ondansetron HCl (Zofran Inj) 4 mg Q6H PRN IV PUSH NAUSEA OR VOMITING 07/02/17 01:15 Fluoxetine HCl (PROzac) 20 mg DAILY PO 07/02/17 09:00 07/03/17 08:47 Acetaminophen/ Hydrocodone Bitart ([place] 5-325 Mg) 1 tab Q8HR PRN PO PAIN 07/02/17 01:15 Lisinopril (Prinivil) 20 mg DAILY PO 07/02/17 09:00 07/03/17 08:47 Quetiapine Fumarate (SEROquel) 50 mg Q8HR PO 07/02/17 06:00 07/03/17 13:42 Valproic Acid (Depakene) 500 mg Q12HR PO 07/02/17 09:00 07/03/17 08:47 Levetriacetam 500 mg/Sodium Chloride 105 ml @ 420 mls/hr Q12HR IV 07/02/17 01:30 07/03/17 08:46 Mannitol (Mannitol Inj) 12.5 gm Q6H IV 07/02/17 09:00 07/03/17 14:55 Haloperidol Lactate (Haldol Inj) 5 mg Q6H PRN IV PUSH agitation/ delirium 07/02/17 08:15 07/03/17 04:11 Dexmedetomidine HCl 200 mcg/ Sodium Chloride 52 ml @ 3.69 mls/hr TITRATE PRN IV SEDATION 07/02/17 08:15 07/02/17 13:15 Labetalol HCl (Trandate Inj) 10 mg Q2HR PRN IV PUSH SBP greater than 150mm Hg 07/02/17 13:30 07/03/17 04:10 Nicardipine HCl 25 mg/Sodium Chloride 250 ml @ 50 mls/hr TITRATE PRN IV Blood pressure management 07/02/17 13:30 07/02/17 18:49 Sodium Chloride 1,000 ml @ 84 mls/hr [id number] IV 07/02/17 16:00 07/03/17 15:41 Medical Decision Making [facility] Remarks 61 y/o male underwent a left cranioplasty for replacement of skull flap on 06/30 presented back to ED with AMS, CT Head 07/02 with moderate left subdural fluid collection, and left temporal parietal intraparenchymal hemorrhage with 6 mm midline shift hypertensive urgency with blood pressure of 218/107 on arrival acute hemorrhagic CVA, ?seizures, subtherapeutic depakene levels f/u CT Head 07/03 with decreasing subdural hemorrhage measuring 7 mm in thickness. Left temporal hemorrhage measures 2.5 x 1.9 cm, left prominent. Left- sided craniotomy again seen. Minimal pneumocephaly. The ventricles are normal for age. No evidence of midline shift, mass lesion or acute infarction. Aphasia Plan Plan Remarks f/u CT Brain this am improved, cont SULEMA draining to continuous suction cont on Mannitol 25 g, f/u serum os critical care following transfusion for low Hgb - f/u H/H cont nonchemichal DVT prophlyaxis in view of ICH protonix for stress ulcer prophylaxis cont Keppra and Depakene, give bolus of depakene, f/u depakene levels Dr. Wong requests Neurology consultation, will obtain EEG dw over the phone Lydia Gallardo Jul 03, 2017 11:28
[2017-07-03] MEDS ORDERED: VALPROIC ACID 250 MG CAP PO ONE (13:15)
--- NOTE | 2017-07-03 17:46 | MG ---
cc: CRISTAL TOVAR M.D. Lab No: Date: 07/03/2017 Age: Sex: M Race: DATE OF 1955, 61 years old EEG NUMBER [id number] REFERRING JONATHAN Gresham. ROOM 1337 Awake, drowsy, asleep with photic stimulation. EEG 03/26/2017 showed some breach rhythms, slowing over the left hemisphere to the left frontal temporal parietal cranioplasty with replacement of skull flap 06/30/2017 with worsening mental status. CT scan showed left subdural fluid collection with left temporal intraparenchymal hemorrhage. MEDICATIONS On: 1. Depakote. 2. Keppra. 3. And others. DESCRIPTION OF RECORD There is overall slowing between 3-4 Hz, background theta. Slightly more slowing over the left compared to the right. Predominately delta frequency over the left. EKG looks sinus. Hyperventilation was performed per chart note. However I do not appreciate any changes. Photic stimulation does elicit a mild driving response. IMPRESSION Abnormal EEG due to moderate slowing consistent with encephalopathic process slightly slower over the left compared to the right without any epileptiform features. Clinical correlation. MD MERY Yan/CAROLIN /4:07 PM /5:38 PM
[2017-07-03] MEDS: ACETAMINOPHEN/HYDROcodone 325 MG/5 MG TAB PO PRN (20:32)
[2017-07-04] VITALS (12 sets, daily range): BP systolic 100–166; BP diastolic 58–90; PULSE 61–78; RESP 11–20; TEMP 98.2–98.8; O2SAT 98–100
[2017-07-04] MEDS ORDERED: SODIUM CHLORIDE 0.9% INJ 50 ML ONE ×2 (00:29→22:09)
[2017-07-04] MEDS: FOSPHENYTOIN SODIUM 100 MG PE/2 ML VIAL IV SCH ×2 (00:30→12:29)
[2017-07-04] MEDS: MANNITOL 12.5 GM/50 ML VIAL IV SCH ×4 (03:06→21:55)
[2017-07-04] MEDS: SODIUM CHLOR 0.9% 1000 ML INJ 1,000 ML IV SCH ×3 (03:45→16:57)
[2017-07-04 06:04] LABS: HEMATOCRIT 24.8 % (39.0-51.0); REVIEW FLAG FINAL
[2017-07-04] MEDS: QUEtiapine FUMARATE 25 MG TAB PO SCH ×3 (06:30→22:25)
[2017-07-04] MEDS: ACETAMINOPHEN/HYDROcodone 325 MG/5 MG TAB PO PRN (07:03)
[2017-07-04] MEDS: VALPROIC ACID 250 MG CAP PO SCH ×2 (08:11→22:06)
[2017-07-04] MEDS: levETIRAcetam INJ 500 MG in SODIUM CHLORIDE 0.9% INJ 100 ML IV SCH ×2 (08:11→22:06)
[2017-07-04] MEDS: FLUoxetine HCL 20 MG CAP PO SCH (08:11)
[2017-07-04] MEDS: LISINOPRIL 20 MG TAB PO SCH (08:11)
[2017-07-04] MEDS: DOCUSATE SODIUM 100 MG CAP PO SCH ×2 (08:11→22:06)
[2017-07-04] MEDS: PANTOPRAZOLE SODIUM 40 MG VIAL IVP SCH (08:11)
[2017-07-04] MEDS: SODIUM CHLORIDE 0.9% FLUSH 5 ML FLUSH IVF SCH ×2 (08:11→21:00)
--- NOTE | 2017-07-04 08:12 | HHI.PR ---
Objective Vital Signs Date Time Temp Pulse Resp B/P (MAP) Pulse Ox O2 Delivery O2 Flow Rate FiO2 07/04/17 06:00 66 07/04/17 04:00 64 07/04/17 04:00 98.4 64 13 112/58 (76) 98 07/04/17 02:00 68 07/04/17 00:00 98.8 78 15 100/62 (75) 98 07/04/17 00:00 78 07/03/17 22:00 78 07/03/17 21:32 17 07/03/17 20:00 78 07/03/17 20:00 98.7 78 17 156/66 (96) 98 07/03/17 19:00 99 Room Air 07/03/17 18:00 78 07/03/17 16:00 98.8 67 13 124/46 (72) 97 07/03/17 16:00 76 07/03/17 14:00 77 07/03/17 12:00 98.1 72 13 138/70 (92) 98 07/03/17 12:00 72 07/03/17 11:20 98.5 77 14 140/58 98 07/03/17 11:09 98.5 78 11 137/58 98 07/03/17 10:00 76 I/O 07/03/17 07/03/17 07/03/17 07/04/17 07/04/17 07/04/17 07:00 15:00 23:00 07:00 15:00 23:00 Intake Total 1632 ml 860 ml 1069 ml 1050 ml Output Total 880 ml 3210 ml 1225 ml Balance 752 ml 860 ml -2141 ml -175 ml Intake IV Total 1632 ml 210 ml 1069 ml 1050 ml Packed Cells 400 ml Blood Product IV Normal Saline Flush 250 ml Output Urine Total 850 ml 3200 ml 1200 ml Drainage Total 30 ml 10 ml 25 ml # Bowel Movements 0 0 0 Result Diagram: 07/04/17 0545 07/04/17 0224 Objective Remarks pupil= awake alert moves all well says yes Assessment and Plan Assessment and Plan imp left ich mri pend eeg neg on keppra ok by me to dc vpa Rodrigo Oleary MD Jul 04, 2017 08:12
--- NOTE | 2017-07-04 08:16 | MB ---
cc: LAMAR JEAN M.D. DATE OF CONSULTATION: 07/03/2017 HISTORY OF PRESENT ILLNESS A 61-year-old right-handed man with a history of hypertension, hypercholesterolemia and an NH about a year ago with a stent. He was on a blood thinner, but he is not sure which one, and also a baby aspirin. On March 15 of this year he was on a ladder, fell off and hit his head and had a subdural hematoma with midline shift, elevated intracranial pressure and subarachnoid hemorrhage. EEG showed some phase reversing on the left side along with a breach rhythm. He was put on Keppra and Dilantin. He was seen by Dr. Clarke. He was fully sedated at that time. He was having some aphasic-type pattern with words at the scene when he had fallen. His blood pressure went up to 205 systolic. He had a scalp laceration. CT of the brain showed a small left-sided subdural 6 mm separation adjacent to the left temporal lobe, bilateral subarachnoid hemorrhage left greater than right, tiny hemorrhagic contusions in both frontal lobes, hemorrhagic contusion in the left temporal lobe. An ICP monitor was placed and then eventually he had a bone flap taken off and he was without the bone flap for the next month or so. He ran some significant high blood pressures during the hospitalization according to his . Finally he was trach'ed and his blood pressure seemed to come down. He then came in for a bone flap replacement on Monday. He seemed to be doing well, went home, and then Monday the day he went home, in the evening he was watching TV and suddenly was not talking well. He came back in. He had a left posterior temporal lobe hemorrhage which appeared to be more posterior than the one he had by CT when he first presented on March 15 of this year. He also had a subdural with some shift and had a drain placed. A CTA of the head was performed which was read as normal. CTA of the neck showed just 50% stenosis on the right, 40% on the left. He had some edema around this hemorrhage, moderate to large left subdural midline shift to the right, left temporal lobe hemorrhage 2.5 x 3.6 cm, 6 mm midline shift, left subdural 8.6 x 1.5 cm. A repeat scan of the head today shows a drain, subdural measuring 7 mm, left temporal hemorrhage 2.5 x 1.9 cm, minimal pneumocephaly. His tells me he was taking the aspirin but had stopped it late last week as far as I can tell, with a history of stents. MEDICATIONS Current medications: 1. Depakote, which has been stopped. 2. Cerebyx 200 q.12h. 3. Colace. 4. Prinivil. 5. Mannitol. 6. Haldol. He had a dose today at 4:00 a.m. 7. Seroquel. 8. Keppra 500 q.12h. His tells me he was on Depakote and Keppra at home. She now says she does not think he was taking aspirin all last week or since his discharge from his first head trauma in March. REVIEW OF SYSTEMS According to his no diabetes, atrial fibrillation, Coumadin. She denies any history of renal, hepatic or pulmonary disease, thyroid disease, lupus, ulcer, cancer, seizure or stroke, prior to all this occurring in March. SOCIAL HISTORY He is a smoker, not a drinker. Lives with his . Occasional marijuana. FAMILY HISTORY Negative for cancer, seizure or stroke. PHYSICAL EXAMINATION VITAL SIGNS: Afebrile. 124/46, 67, 13. Highest blood pressure here was 218/107 yesterday. It was 182/79 on Monday. NECK: There are no carotid bruits. HEART: Regular rhythm. I do not detect a murmur. Pupils are equal. Visual renee are full. Extraocular movements are intact without nystagmus. Face moves symmetrically. Tongue was midline. He moves all four extremities well. Toes are downgoing bilaterally. DTRs are 2+ symmetric throughout. He is awake and alert. He has an expressive and receptive aphasia, however. Some things he can mimic well, but otherwise he cannot. He can stick out his tongue for me and move his arms and legs but he cannot show me his left thumb. He can count fingers but then perseverates on it. LABORATORY He has anemia this morning, hematocrit down to 21, hemoglobin 6.7. White count and platelet count are normal. ABG on the was 7.38, 28, 227. Basic metabolic profile is normal. Serum osmolality 297. LFTs normal. Coags normal. Depakote level 20 today. Dilantin level 9.4 yesterday. UA negative. IMAGING As noted. EEG EEG done today: Moderate slowing, slightly slow on the left, no seizure activity. IMPRESSION Left intracranial hemorrhage, possibly from some shift in the brain and hypertension when the flap was put back on. He is certainly at risk for an intracranial hemorrhage with the trauma and midline shift that he had before in March. RECOMMENDATIONS I would like to get an MRI if possible to make sure there is no infarcts and will do an echocardiogram. Overall I thought he looked well neurologically. He has not had any seizures on this admission. As far as I can tell he has never had a seizure. He probably would be fine just to be on the Keppra, and his EEG being negative today he could probably stop the Depakote. Will check an MRI of the brain if able. MD ANNITA BlanchardM/RICKY /6:59 PM /8:10 AM
--- NOTE | 2017-07-04 08:33 | HHI.CCPN ---
Subjective Remarks/Hospital Course 07/02: Mr. Crain is a 61 year old male who underwent left frontal temporal parietal cranioplasty with replacement of skull flap on 06/30/17. He tolerated procedure well was extubated and subsequently admitted to [facility].. He was discharged home on 07/01 by neurosurgery. He was brought back to [place] ED last night due to worsening mental status. A repeat CT Head shows left subdural fluid collection with left temporal intraparenchymal hemorrhage with 6 mm midline shift. Patient was admitted by neurosurgery to [facility] and critical care consult was requested. When I evaluated the patient he was agitated with some speech difficulty and disoriented. I ordered Haldol on Precedex however patient calmed down prior to administration of these meds. He had been initiated on anticonvulsants and mannitol per neurosurgery. I spoke with Dr. Wong personally regarding patient's clinical status and CT findings. He will be emergently taking him to the OR for evacuation of subdural hematoma and intraparenchymal hemorrhage. History was obtained by reviewing records and discussion with nursing staff and Dr. Wong. 07/03: Head CT today shows good evacuation of left SDH. Hgb 6.7. 07/04: Hgb > 8 after transfusion. SULEMA drains serous. Moves 4 limbs. Objective Vital Signs Date Time Temp Pulse Resp B/P (MAP) Pulse Ox O2 Delivery O2 Flow Rate FiO2 07/04/17 07:00 99 Room Air 07/04/17 06:00 66 07/04/17 04:00 98.4 13 112/58 (76) 07/02/17 13:30 21 Intake and Output 07/04/17 07/04/17 07/05/17 08:00 16:00 00:00 Intake Total 1050 ml Output Total 1225 ml Balance -175 ml Result Diagram: 07/04/17 0545 07/04/17 0224 Imaging Laboratory Tests Test 07/02/17 02:00 07/02/17 02:50 Blood Urea Nitrogen 9 MG/DL Creatinine 0.80 MG/DL Random Glucose 116 MG/DL Calcium Level 8.9 MG/DL Sodium Level 140 MEQ/L Potassium Level 4.0 MEQ/L Chloride Level 107 MEQ/L Carbon Dioxide Level 27.0 MEQ/L Anion Gap 6 MEQ/L Estimat Glomerular Filtration Rate 99 ML/MIN Serum Osmolality 293 MOSM/KG Nasal Screen MRSA (PCR) MRSA NOT DETECTED Objective Remarks HEENT: No pallor or icterus, tongue moist, pupils 3 mm bilaterally reacting actively to light, Neck: No JVD, airway widely patent. Chest/pulmonary: CTA bilaterally Cardiovascular: S1-S2 regular no gallop or murmur GI/abdomen: Soft, nontender, bowel sounds present Extremities: Warm bilaterally, no edema Neuro: wake alert, disoriented with speech disturbance, nonfocal grossly, moving all 4 extremities A/P Assessment and Plan 61-year-old male with: TBI status post left cranioplasty 06/30 New left-sided subdural hematoma (under flap) left sided intraparenchymal hemorrhage with left to right midline shift Cerebral edema CAD Plan: Neuro: Continue AEDs. Continue IV mannitol. Continue neuro checks per ICU protocol. Haldol when necessary for agitation/delirium. Precedex drip as needed. Cardiovascular: Hold all antiplatelet agents. Labetalol when necessary to keep SBP less than 140 mm Hg Pulmonary: Supplemental O2 as needed. Currently protecting airway. Bronchodilators as needed GI/liver: Nothing by mouth for now. Swallow evaluation. Renal/: IV hydration, strict intake output, monitor and replete electrolytes, follow BUN/creatinine. Heme: Follow Hgb. Transfuse 1 units PRBC. ID: Perioperative antibiotic prophylaxis per neurosurgery Endocrine: Watch for hyperglycemia, SSI for glycemic control if needed. Prophylaxis: SCDs. No heparin or Lovenox till cleared by neurosurgery in view of intracranial hemorrhage. Pepcid. Overall impression: S/P urgent evacuation left subdural hematoma. Stable hemodynamics and respiratory status. Remains with speech difficulties. Protects airway. Larry Ascencio MD Jul 04, 2017 08:32
[2017-07-04 09:00] LABS: BICARBONATE 25.2 MEQ/L (21.0-32.0); POTASSIUM 3.5 MEQ/L (3.5-5.1)
[2017-07-04] MEDS ORDERED: GADODIAMIDE PF 287 MG/ML 5 ML VIAL (for RAD MRI) IVCONTRAST ONE (12:21)
--- NOTE | 2017-07-04 13:54 | RADRPT ---
EXAM DATE/TIME: 07/04/2017 12:06 [facility] COMPARISON: CT BRAIN W/O CONTRAST, July 03, 2017, 5:01. INDICATIONS : CVA. Intracranial hemorrhage. CONTRAST: 13 cc Omniscan (gadodiamide) IV MEDICAL HISTORY : Myocardial infarction. SURGICAL HISTORY : Rotator cuff, right. Right knee scope. ENCOUNTER: Subsequent ACUITY: 2 day PAIN SCORE: 3/10 LOCATION: head. TECHNIQUE: Multiplanar, multisequence MRI of the brain was performed both prior to and following the administrat ion of paramagnetic contrast. FINDINGS: CEREBRUM: Parenchymal bleed is again identified in the left temporal lobe with surrounding vasogenic edema. Sta ble 5 mm left to right subfalcine shift. There is a 1 cm subpleural collection which does show some e nhancement following contrast administration. I do not see an enhancing parenchymal mass lesion, moore rebeca WHITE MATTER: Vasogenic edema associated with the left temporal hemorrhage. POSTERIOR FOSSA: The cerebellum and brainstem are intact. The 4th ventricle is midline. The cerebellopontine angle is unremarkable. The cerebellar tonsils are normal in position. DIFFUSION IMAGING: No focal areas of restricted diffusion are seen. No evidence of acute infarction. EXTRACRANIAL: The visualized portions of the orbits and paranasal sinuses are unremarkable. POST-CONTRAST: Subdural enhancement in the region of the left subdural hemorrhage as above. CONCLUSION: 1. Left temporal parenchymal hemorrhage with surrounding vasogenic edema and associated 5 mm left to right subfalcine shift. No significant change. 2. 9-10 mm left subdural hematoma which shows enhancement following contrast administration. 3. No diffusion restriction to suggest an acute infarct. Vince Golden MD on July 04, 2017 at 13:46 Board Certified Radiologist. This report was verified electronically.
--- NOTE | 2017-07-04 16:22 | HHI.NSPN ---
Note Status Status: Progress Note Interval History Interval History Mr. Crain is a 61 year old male who underwent left frontal temporal parietal cranioplasty with replacement of skull flap on 06/30/17. His surgery went well without complications. He was discharged home yesterday in stable conditions. He was brought back to [place] ED last night due to worsening mental status. His reports they were sitting watching TV when he turned his head to hear and had incomprehensible speech. There were no shaking or seizure like activities. A repeat CT Head shows left subdural fluid collection with left temporal intraparenchymal hemorrhage with 6 mm midline shift. His blood pressure on arrival was 218/107. He is currently sedated on Precedex due to agitation. Critical care consulted, he will be started on a cardene drip. He moves all four extremities but reported to have confusion vs dysphasia. 07/03: f/u CT Head completed. dysphasic, moves x 4 ext. hgb 6.8 this am. 07/04 therapeutic depakene levels. awake, moves x 4, persistent speech difficulties. Labs, Micro, & Vital Signs Results Date Time Temp Pulse Resp B/P (MAP) Pulse Ox O2 Delivery O2 Flow Rate FiO2 07/04/17 14:00 66 07/04/17 12:00 66 07/04/17 10:00 67 07/04/17 08:00 98.2 61 11 121/90 (100) 99 07/04/17 08:00 61 07/04/17 07:00 99 Room Air 07/04/17 06:00 66 07/04/17 04:00 64 07/04/17 04:00 98.4 64 13 112/58 (76) 98 07/04/17 02:00 68 07/04/17 00:00 98.8 78 15 100/62 (75) 98 07/04/17 00:00 78 07/03/17 22:00 78 07/03/17 21:32 17 07/03/17 20:00 78 07/03/17 20:00 98.7 78 17 156/66 (96) 98 07/03/17 19:00 99 Room Air 07/03/17 18:00 78 07/05/17 07:00 Intake Total 105 ml Balance 105 ml Constitutional Vital Signs Date Time Temp Pulse Resp B/P (MAP) Pulse Ox O2 Delivery O2 Flow Rate FiO2 07/04/17 14:00 66 07/04/17 12:00 66 07/04/17 10:00 67 07/04/17 08:00 98.2 61 11 121/90 (100) 99 07/04/17 08:00 61 07/04/17 07:00 99 Room Air 07/04/17 06:00 66 07/04/17 04:00 64 07/04/17 04:00 98.4 64 13 112/58 (76) 98 07/04/17 02:00 68 07/04/17 00:00 98.8 78 15 100/62 (75) 98 07/04/17 00:00 78 07/03/17 22:00 78 07/03/17 21:32 17 07/03/17 20:00 78 07/03/17 20:00 98.7 78 17 156/66 (96) 98 07/03/17 19:00 99 Room Air 07/03/17 18:00 78 07/05/17 07:00 Intake Total 105 ml Balance 105 ml Physical Exam Mr. Crain is arouses, dysphasic, repeats words. not following to commands. Cranial nerve examination: pupils 3 mm round and reactive to light. Facial motor are normal and symmetrical. Neck is soft and supple Motor: moving all four extremities grossly symmetrically, cannot assess detail exam due to clinical condition Sensory examination: withdraws to local pain x 4 and grimaces Bilateral plantar flexion response. Cerebellar examination cannot be assessed due to clinical condition. Surgical wound with clean head wrap dressing. SULEMA drains #1 with 25 cc output and #2 with 10 cc output overnight. Medications Current Medications Current Medications Medications (Trade) Dose Ordered Sig/Jyothi Route PRN Reason Start Time Stop Time Status Last Admin Dose Admin IV Flush (NS Flush) 2 ml UNSCH PRN IVF FLUSH AFTER USING IV ACCESS 07/02/17 01:15 IV Flush (NS Flush) 2 ml BID IVF 07/02/17 09:00 07/04/17 08:11 Fosphenytoin Sodium (Cerebyx Inj) 200 mgpe Q12H IV 07/02/17 12:00 07/04/17 12:29 Docusate Sodium (Colace) 100 mg BID PO 07/02/17 09:00 07/03/17 21:32 Pantoprazole Sodium (Protonix Inj) 40 mg DAILY IVP 07/02/17 09:00 07/04/17 08:11 Ondansetron HCl (Zofran Inj) 4 mg Q6H PRN IV PUSH NAUSEA OR VOMITING 07/02/17 01:15 Fluoxetine HCl (PROzac) 20 mg DAILY PO 07/02/17 09:00 07/04/17 08:11 Acetaminophen/ Hydrocodone Bitart ([place] 5-325 Mg) 1 tab Q8HR PRN PO PAIN 07/02/17 01:15 07/04/17 07:03 Lisinopril (Prinivil) 20 mg DAILY PO 07/02/17 09:00 07/04/17 08:11 Quetiapine Fumarate (SEROquel) 50 mg Q8HR PO 07/02/17 06:00 07/04/17 13:29 Valproic Acid (Depakene) 500 mg Q12HR PO 07/02/17 09:00 07/04/17 08:11 Levetriacetam 500 mg/Sodium Chloride 105 ml @ 420 mls/hr Q12HR IV 07/02/17 01:30 07/04/17 08:11 Mannitol (Mannitol Inj) 12.5 gm Q6H IV 07/02/17 09:00 07/04/17 14:30 Haloperidol Lactate (Haldol Inj) 5 mg Q6H PRN IV PUSH agitation/ delirium 07/02/17 08:15 07/03/17 04:11 Dexmedetomidine HCl 200 mcg/ Sodium Chloride 52 ml @ 3.69 mls/hr TITRATE PRN IV SEDATION 07/02/17 08:15 07/02/17 13:15 Labetalol HCl (Trandate Inj) 10 mg Q2HR PRN IV PUSH SBP greater than 150mm Hg 07/02/17 13:30 07/03/17 04:10 Nicardipine HCl 25 mg/Sodium Chloride 250 ml @ 50 mls/hr TITRATE PRN IV Blood pressure management 07/02/17 13:30 07/02/17 18:49 Sodium Chloride 1,000 ml @ 84 mls/hr [id number] IV 07/02/17 16:00 07/04/17 03:45 Medical Decision Making MDM Remarks 61 y/o male underwent a left cranioplasty for replacement of skull flap on 06/30 presented back to ED with AMS, CT Head 07/02 with moderate left subdural fluid collection, and left temporal parietal intraparenchymal hemorrhage with 6 mm midline shift hypertensive urgency with blood pressure of 218/107 on arrival acute hemorrhagic CVA, ?seizures, subtherapeutic depakene levels. EEG negative for seizures f/u CT Head 07/03 with decreasing subdural hemorrhage measuring 7 mm in thickness. Left temporal hemorrhage measures 2.5 x 1.9 cm, left prominent. Left- sided craniotomy again seen. Minimal pneumocephaly. The ventricles are normal for age. No evidence of midline shift, mass lesion or acute infarction. Aphasia Plan Plan Remarks neuro consultation appreciated, MRI Brain pending, cont SULEMA draining x 2 to continuous suction cont on Mannitol, hold serum os greater than 310 critical care following cont nonchemichal DVT prophlyaxis in view of ICH protonix for stress ulcer prophylaxis cont Keppra and Bud, Dr. Wong to defer mgt per neurology cont therapy, PT, OT cont Lydia Ascencio Jul 04, 2017 16:22
[2017-07-05] VITALS (11 sets, daily range): BP systolic 145–168; BP diastolic 63–89; PULSE 63–86; RESP 15–19; TEMP 98.1–98.6; O2SAT 97–100
[2017-07-05] MEDS: FOSPHENYTOIN SODIUM 100 MG PE/2 ML VIAL IV SCH (00:04)
[2017-07-05 02:51] LABS: BICARBONATE 25.7 MEQ/L (21.0-32.0); POTASSIUM 3.5 MEQ/L (3.5-5.1)
[2017-07-05] MEDS: MANNITOL 12.5 GM/50 ML VIAL IV SCH ×2 (03:58→10:11)
[2017-07-05] MEDS: QUEtiapine FUMARATE 25 MG TAB PO SCH ×3 (06:25→21:36)
--- NOTE | 2017-07-05 07:34 | HHI.PR ---
Subjective Remarks no sz acc to nurse Objective Vital Signs Date Time Temp Pulse Resp B/P (MAP) Pulse Ox O2 Delivery O2 Flow Rate FiO2 07/05/17 04:00 98.4 72 15 168/78 (108) 97 07/05/17 04:00 72 07/05/17 02:00 76 07/05/17 00:00 98.6 86 19 155/78 (103) 100 07/05/17 00:00 86 07/04/17 22:00 70 07/04/17 20:00 98.4 78 15 166/70 (102) 100 Automatic Cuff 07/04/17 20:00 78 07/04/17 19:00 99 Room Air 07/04/17 18:00 70 07/04/17 16:00 98.2 74 20 162/79 (106) 99 07/04/17 16:00 74 07/04/17 14:00 66 07/04/17 12:00 66 07/04/17 10:00 67 07/04/17 08:00 98.2 61 11 121/90 (100) 99 07/04/17 08:00 61 I/O 07/04/17 07/04/17 07/04/17 07/05/17 07/05/17 07/05/17 07:00 15:00 23:00 07:00 15:00 23:00 Intake Total 1050 ml 105 ml 480 ml Output Total 1225 ml 2650 ml Balance -175 ml 105 ml -2170 ml Intake Oral 480 ml IV Total 1050 ml 105 ml Output Urine Total 1200 ml 2650 ml Drainage Total 25 ml 0 ml # Bowel Movements 0 0 Result Diagram: 07/04/17 0545 07/05/17 0210 Objective Remarks pupil= awake alert moves all well says yes alfa wu Assessment and Plan Assessment and Plan imp left ich mri no cva mild midline shift ich left temp lobe eeg neg on keppra vpa i dced the dilantin vpa 56 ok oob by me if ok with med team Rodrigo Oleary MD Jul 05, 2017 07:34
[2017-07-05] MEDS: levETIRAcetam INJ 500 MG in SODIUM CHLORIDE 0.9% INJ 100 ML IV SCH ×2 (08:08→21:36)
[2017-07-05] MEDS: FLUoxetine HCL 20 MG CAP PO SCH (08:08)
[2017-07-05] MEDS: SODIUM CHLORIDE 0.9% FLUSH 5 ML FLUSH IVF SCH ×2 (08:08→21:47)
[2017-07-05] MEDS: VALPROIC ACID 250 MG CAP PO SCH ×2 (08:08→21:35)
[2017-07-05] MEDS: LISINOPRIL 20 MG TAB PO SCH (08:08)
[2017-07-05] MEDS: DOCUSATE SODIUM 100 MG CAP PO SCH ×2 (08:08→21:35)
[2017-07-05] MEDS: PANTOPRAZOLE SODIUM 40 MG VIAL IVP SCH (08:08)
--- NOTE | 2017-07-05 08:23 | HHI.CCPN ---
Subjective Remarks/Hospital Course 07/02: Mr. Crain is a 61 year old male who underwent left frontal temporal parietal cranioplasty with replacement of skull flap on 06/30/17. He tolerated procedure well was extubated and subsequently admitted to [facility].. He was discharged home on 07/01 by neurosurgery. He was brought back to [place] ED last night due to worsening mental status. A repeat CT Head shows left subdural fluid collection with left temporal intraparenchymal hemorrhage with 6 mm midline shift. Patient was admitted by neurosurgery to [facility] and critical care consult was requested. When I evaluated the patient he was agitated with some speech difficulty and disoriented. I ordered Haldol on Precedex however patient calmed down prior to administration of these meds. He had been initiated on anticonvulsants and mannitol per neurosurgery. I spoke with Dr. Wong personally regarding patient's clinical status and CT findings. He will be emergently taking him to the OR for evacuation of subdural hematoma and intraparenchymal hemorrhage. History was obtained by reviewing records and discussion with nursing staff and Dr. Wong. 07/03: Head CT today shows good evacuation of left SDH. Hgb 6.7. 07/04: Hgb > 8 after transfusion. SULEMA drains serous. Moves 4 limbs. 07/05: MRI with enhancing SDH and small shift. Electrolytes normal, well hydrated, good perfusion pressure. No change. He is frustrated, struggles with speech. Objective Vital Signs Date Time Temp Pulse Resp B/P (MAP) Pulse Ox O2 Delivery O2 Flow Rate FiO2 07/05/17 06:00 66 07/05/17 04:00 98.4 15 168/78 (108) 97 07/04/17 19:00 Room Air 07/02/17 13:30 21 Intake and Output 07/05/17 07/05/17 07/06/17 08:00 16:00 00:00 Intake Total 100 ml Output Total 815 ml Balance -715 ml Result Diagram: 07/04/17 0545 07/05/17 0210 Imaging Laboratory Tests Test 07/02/17 02:00 07/02/17 02:50 Blood Urea Nitrogen 9 MG/DL Creatinine 0.80 MG/DL Random Glucose 116 MG/DL Calcium Level 8.9 MG/DL Sodium Level 140 MEQ/L Potassium Level 4.0 MEQ/L Chloride Level 107 MEQ/L Carbon Dioxide Level 27.0 MEQ/L Anion Gap 6 MEQ/L Estimat Glomerular Filtration Rate 99 ML/MIN Serum Osmolality 293 MOSM/KG Nasal Screen MRSA (PCR) MRSA NOT DETECTED Objective Remarks HEENT: No pallor or icterus, tongue moist, pupils 3 mm bilaterally reacting actively to light, Neck: No JVD, airway widely patent. Chest/pulmonary: CTA bilaterally Cardiovascular: S1-S2 regular no gallop or murmur GI/abdomen: Soft, nontender, bowel sounds present Extremities: Warm bilaterally, no edema Neuro: wake alert, disoriented with speech disturbance, nonfocal grossly, moving all 4 extremities A/P Assessment and Plan 61-year-old male with: TBI status post left cranioplasty 06/30 New left-sided subdural hematoma (under flap) left sided intraparenchymal hemorrhage with left to right midline shift Cerebral edema CAD Plan: Neuro: Continue AEDs. Continue IV mannitol. Continue neuro checks per ICU protocol. Haldol when necessary for agitation/delirium. Precedex drip as needed. Cardiovascular: Hold all antiplatelet agents. Labetalol when necessary to keep SBP less than 140 mm Hg Pulmonary: Supplemental O2 as needed. Currently protecting airway. Bronchodilators as needed GI/liver: Swallow evaluation. Renal/: IV hydration, strict intake output, monitor and replete electrolytes, follow BUN/creatinine. Heme: Follow Hgb. ID: Perioperative antibiotic prophylaxis per neurosurgery Endocrine: Watch for hyperglycemia, SSI for glycemic control if needed. Prophylaxis: SCDs. No heparin or Lovenox till cleared by neurosurgery in view of intracranial hemorrhage. Pepcid. Overall impression: S/P urgent evacuation left subdural hematoma. Stable hemodynamics and respiratory status. Remains with speech difficulties. Protects airway. BP control acceptable. Larry Ascencio MD Jul 05, 2017 08:22
[2017-07-05] MEDS ORDERED: MORPHINE SULFATE 2 MG/ML INJ ONE (10:53)
[2017-07-05] MEDS ORDERED: MORPHINE SULFATE 4 MG/ML INJ IV PUSH ONE (11:00)
--- NOTE | 2017-07-05 11:01 | HHI.NSPN ---
Note Status Status: Progress Note Interval History Interval History Mr. Crain is a 61 year old male who underwent left frontal temporal parietal cranioplasty with replacement of skull flap on 06/30/17. His surgery went well without complications. He was discharged home yesterday in stable conditions. He was brought back to [place] ED last night due to worsening mental status. His reports they were sitting watching TV when he turned his head to hear and had incomprehensible speech. There were no shaking or seizure like activities. A repeat CT Head shows left subdural fluid collection with left temporal intraparenchymal hemorrhage with 6 mm midline shift. His blood pressure on arrival was 218/107. He is currently sedated on Precedex due to agitation. Critical care consulted, he will be started on a cardene drip. He moves all four extremities but reported to have confusion vs dysphasia. 07/03: f/u CT Head completed. dysphasic, moves x 4 ext. hgb 6.8 this am. 07/04 therapeutic depakene levels. awake, moves x 4, persistent speech difficulties. 07/05: speech improving. denies significant headaches, focal weakness, vomiting , seizures. minimal SULEMA drains output. Labs, Micro, & Vital Signs Results Date Time Temp Pulse Resp B/P (MAP) Pulse Ox O2 Delivery O2 Flow Rate FiO2 07/05/17 10:00 72 07/05/17 08:00 74 07/05/17 08:00 98.1 74 16 161/83 (109) 100 07/05/17 07:00 99 Room Air 07/05/17 06:00 66 07/05/17 04:00 98.4 72 15 168/78 (108) 97 07/05/17 04:00 72 07/05/17 02:00 76 07/05/17 00:00 98.6 86 19 155/78 (103) 100 07/05/17 00:00 86 07/04/17 22:00 70 07/04/17 20:00 98.4 78 15 166/70 (102) 100 Automatic Cuff 07/04/17 20:00 78 07/04/17 19:00 99 Room Air 07/04/17 18:00 70 07/04/17 16:00 98.2 74 20 162/79 (106) 99 07/04/17 16:00 74 07/04/17 14:00 66 07/04/17 12:00 66 Constitutional Vital Signs Date Time Temp Pulse Resp B/P (MAP) Pulse Ox O2 Delivery O2 Flow Rate FiO2 07/05/17 10:00 72 07/05/17 08:00 74 07/05/17 08:00 98.1 74 16 161/83 (109) 100 07/05/17 07:00 99 Room Air 07/05/17 06:00 66 07/05/17 04:00 98.4 72 15 168/78 (108) 97 07/05/17 04:00 72 07/05/17 02:00 76 07/05/17 00:00 98.6 86 19 155/78 (103) 100 07/05/17 00:00 86 07/04/17 22:00 70 07/04/17 20:00 98.4 78 15 166/70 (102) 100 Automatic Cuff 07/04/17 20:00 78 07/04/17 19:00 99 Room Air 07/04/17 18:00 70 07/04/17 16:00 98.2 74 20 162/79 (106) 99 07/04/17 16:00 74 07/04/17 14:00 66 07/04/17 12:00 66 Review of Systems Constitutional: DENIES: Fever Cardiovascular: DENIES: Chest pain Neurologic: COMPLAINS OF: Headache (mild), Speech Problems, DENIES: Localized weakness Physical Exam Mr. Crain is arouses, dysphasic, repeats words. not following to commands. Cranial nerve examination: pupils 3 mm round and reactive to light. Facial motor are normal and symmetrical. Neck is soft and supple Motor: moving all four extremities grossly symmetrically, cannot assess detail exam due to clinical condition Sensory examination: withdraws to local pain x 4 and grimaces Bilateral plantar flexion response. Cerebellar examination cannot be assessed due to clinical condition. Surgical wound with clean head wrap dressing. SULEMA drains #1 with 15 cc output and #2 with 0 cc output overnight. Medications Current Medications Current Medications Medications (Trade) Dose Ordered Sig/Jyothi Route PRN Reason Start Time Stop Time Status Last Admin Dose Admin IV Flush (NS Flush) 2 ml UNSCH PRN IVF FLUSH AFTER USING IV ACCESS 07/02/17 01:15 IV Flush (NS Flush) 2 ml BID IVF 07/02/17 09:00 07/05/17 08:08 Docusate Sodium (Colace) 100 mg BID PO 07/02/17 09:00 07/05/17 08:08 Pantoprazole Sodium (Protonix Inj) 40 mg DAILY IVP 07/02/17 09:00 07/05/17 08:08 Ondansetron HCl (Zofran Inj) 4 mg Q6H PRN IV PUSH NAUSEA OR VOMITING 07/02/17 01:15 Fluoxetine HCl (PROzac) 20 mg DAILY PO 07/02/17 09:00 07/05/17 08:08 Acetaminophen/ Hydrocodone Bitart ([place] 5-325 Mg) 1 tab Q8HR PRN PO PAIN 07/02/17 01:15 07/04/17 07:03 Lisinopril (Prinivil) 20 mg DAILY PO 07/02/17 09:00 07/05/17 08:08 Quetiapine Fumarate (SEROquel) 50 mg Q8HR PO 07/02/17 06:00 07/05/17 06:25 Valproic Acid (Depakene) 500 mg Q12HR PO 07/02/17 09:00 07/05/17 08:08 Levetriacetam 500 mg/Sodium Chloride 105 ml @ 420 mls/hr Q12HR IV 07/02/17 01:30 07/05/17 08:08 Mannitol (Mannitol Inj) 12.5 gm Q6H IV 07/02/17 09:00 07/05/17 12:00 07/05/17 10:11 Haloperidol Lactate (Haldol Inj) 5 mg Q6H PRN IV PUSH agitation/ delirium 07/02/17 08:15 07/03/17 04:11 Dexmedetomidine HCl 200 mcg/ Sodium Chloride 52 ml @ 3.69 mls/hr TITRATE PRN IV SEDATION 07/02/17 08:15 07/02/17 13:15 Labetalol HCl (Trandate Inj) 10 mg Q2HR PRN IV PUSH SBP greater than 150mm Hg 07/02/17 13:30 07/03/17 04:10 Nicardipine HCl 25 mg/Sodium Chloride 250 ml @ 50 mls/hr TITRATE PRN IV Blood pressure management 07/02/17 13:30 07/02/17 18:49 Sodium Chloride 1,000 ml @ 0 mls/hr [id number] IV 07/02/17 16:00 07/04/17 16:57 Morphine Sulfate (Morphine Inj) 1 mg NOW ONCE IV PUSH 07/05/17 11:00 07/05/17 11:01 UNV Medical Decision Making MDM Remarks 61 y/o male underwent a left cranioplasty for replacement of skull flap on 06/30 presented back to ED with AMS, CT Head 07/02 with moderate left subdural fluid collection, and left temporal parietal intraparenchymal hemorrhage with 6 mm midline shift hypertensive urgency with blood pressure of 218/107 on arrival acute hemorrhagic CVA, ?seizures, subtherapeutic depakene levels. EEG negative for seizures f/u CT Head 07/03 with decreasing subdural hemorrhage measuring 7 mm in thickness. Left temporal hemorrhage measures 2.5 x 1.9 cm, left prominent. Left- sided craniotomy again seen. Minimal pneumocephaly. The ventricles are normal for age. No evidence of midline shift, mass lesion or acute infarction. MRI Brain reviewed by Dr. Wong, improved left temporal ICH with thickened left dura Aphasia, improving Plan Plan Remarks neuro consultation appreciated, MRI Brain reviewed by Dr. Wong SULEMA drains x 2 dc'ed. dc Mannitol, cont therapy, PT, OT. ambulate- mobilize out of bed to chair clear to transfer out of unit to 5N near nursing station cont nonchemichal DVT prophlyaxis in view of ICH protonix for stress ulcer prophylaxis cont Dr. Marvin Krause to defer mgt per neurology cont Lydia Ascencio Jul 05, 2017 11:01
[2017-07-06 00:47] VITALS: BP 143/66; PULSE 74; RESP 17; TEMP 98.2; O2SAT 98
[2017-07-06 05:21] VITALS: BP 114/67; PULSE 72; RESP 17; TEMP 98.3; O2SAT 97
[2017-07-06] MEDS: QUEtiapine FUMARATE 25 MG TAB PO SCH ×2 (06:33→13:23)
[2017-07-06 08:15] VITALS: BP 145/76; PULSE 76; RESP 18; TEMP 97.7; O2SAT 98
[2017-07-06] MEDS: DOCUSATE SODIUM 100 MG CAP PO SCH (08:35)
[2017-07-06] MEDS: LISINOPRIL 20 MG TAB PO SCH (08:36)
[2017-07-06] MEDS: VALPROIC ACID 250 MG CAP PO SCH (08:36)
[2017-07-06] MEDS: FLUoxetine HCL 20 MG CAP PO SCH (08:36)
[2017-07-06] MEDS: PANTOPRAZOLE SODIUM 40 MG VIAL IVP SCH (08:36)
[2017-07-06] MEDS: levETIRAcetam INJ 500 MG in SODIUM CHLORIDE 0.9% INJ 100 ML IV SCH (08:37)
[2017-07-06] MEDS: SODIUM CHLORIDE 0.9% FLUSH 5 ML FLUSH IVF SCH (08:38)
[2017-07-06 12:13] VITALS: BP 139/83; PULSE 83; RESP 18; TEMP 98; O2SAT 99
--- NOTE | 2017-07-06 12:20 | HHI.NSPN ---
Note Status Status: Progress Note Interval History Interval History Mr. Crain is a 61 year old male who underwent left frontal temporal parietal cranioplasty with replacement of skull flap on 06/30/17. His surgery went well without complications. He was discharged home yesterday in stable conditions. He was brought back to [place] ED last night due to worsening mental status. His reports they were sitting watching TV when he turned his head to hear and had incomprehensible speech. There were no shaking or seizure like activities. A repeat CT Head shows left subdural fluid collection with left temporal intraparenchymal hemorrhage with 6 mm midline shift. His blood pressure on arrival was 218/107. He is currently sedated on Precedex due to agitation. Critical care consulted, he will be started on a cardene drip. He moves all four extremities but reported to have confusion vs dysphasia. 07/03: f/u CT Head completed. dysphasic, moves x 4 ext. hgb 6.8 this am. 07/04 therapeutic depakene levels. awake, moves x 4, persistent speech difficulties. 07/05: speech improving. denies significant headaches, focal weakness, vomiting , seizures. minimal SULEMA drains output. 07/06: pt adamant to going home today, reports feels well. no acute events overnight. Labs, Micro, & Vital Signs Results Date Time Temp Pulse Resp B/P (MAP) Pulse Ox O2 Delivery O2 Flow Rate FiO2 07/06/17 12:13 98.0 83 18 139/83 (101) 99 07/06/17 08:51 Room Air 07/06/17 08:15 97.7 76 18 145/76 (99) 98 07/06/17 05:21 98.3 72 17 114/67 (83) 97 07/06/17 00:47 98.2 74 17 143/66 (91) 98 07/05/17 23:31 Room Air 07/05/17 20:10 98.1 73 17 155/79 (104) 98 07/05/17 18:00 71 07/05/17 16:00 69 07/05/17 16:00 98.3 76 17 145/63 (90) 100 07/05/17 14:00 63 Constitutional Vital Signs Date Time Temp Pulse Resp B/P (MAP) Pulse Ox O2 Delivery O2 Flow Rate FiO2 07/06/17 12:13 98.0 83 18 139/83 (101) 99 07/06/17 08:51 Room Air 07/06/17 08:15 97.7 76 18 145/76 (99) 98 07/06/17 05:21 98.3 72 17 114/67 (83) 97 07/06/17 00:47 98.2 74 17 143/66 (91) 98 07/05/17 23:31 Room Air 07/05/17 20:10 98.1 73 17 155/79 (104) 98 07/05/17 18:00 71 07/05/17 16:00 69 07/05/17 16:00 98.3 76 17 145/63 (90) 100 07/05/17 14:00 63 Physical Exam Myatovich is arouses, dysphasic, repeats words. not following to commands. Cranial nerve examination: pupils 3 mm round and reactive to light. Facial motor are normal and symmetrical. Neck is soft and supple Motor: moving all four extremities grossly symmetrically, cannot assess detail exam due to clinical condition Sensory examination: withdraws to local pain x 4 and grimaces Bilateral plantar flexion response. Cerebellar examination cannot be assessed due to clinical condition. Surgical wound with clean head wrap dressing. SULEMA drains #1 with 15 cc output and #2 with 0 cc output overnight. Medications Current Medications Current Medications Medications (Trade) Dose Ordered Sig/Jyothi Route PRN Reason Start Time Stop Time Status Last Admin Dose Admin IV Flush (NS Flush) 2 ml UNSCH PRN IVF FLUSH AFTER USING IV ACCESS 07/02/17 01:15 IV Flush (NS Flush) 2 ml BID IVF 07/02/17 09:00 07/06/17 08:38 Docusate Sodium (Colace) 100 mg BID PO 07/02/17 09:00 07/06/17 08:35 Pantoprazole Sodium (Protonix Inj) 40 mg DAILY IVP 07/02/17 09:00 07/06/17 08:36 Ondansetron HCl (Zofran Inj) 4 mg Q6H PRN IV PUSH NAUSEA OR VOMITING 07/02/17 01:15 Fluoxetine HCl (PROzac) 20 mg DAILY PO 07/02/17 09:00 07/06/17 08:36 Acetaminophen/ Hydrocodone Bitart ([employer] 5-325 Mg) 1 tab Q8HR PRN PO PAIN 07/02/17 01:15 07/04/17 07:03 Lisinopril (Prinivil) 20 mg DAILY PO 07/02/17 09:00 07/06/17 08:36 Quetiapine Fumarate (SEROquel) 50 mg Q8HR PO 07/02/17 06:00 07/06/17 06:33 Valproic Acid (Depakene) 500 mg Q12HR PO 07/02/17 09:00 07/06/17 08:36 Levetriacetam 500 mg/Sodium Chloride 105 ml @ 420 mls/hr Q12HR IV 07/02/17 01:30 07/06/17 08:37 Haloperidol Lactate (Haldol Inj) 5 mg Q6H PRN IV PUSH agitation/ delirium 07/02/17 08:15 07/03/17 04:11 Dexmedetomidine HCl 200 mcg/ Sodium Chloride 52 ml @ 3.69 mls/hr TITRATE PRN IV SEDATION 07/02/17 08:15 07/02/17 13:15 Labetalol HCl (Trandate Inj) 10 mg Q2HR PRN IV PUSH SBP greater than 150mm Hg 07/02/17 13:30 07/03/17 04:10 Nicardipine HCl 25 mg/Sodium Chloride 250 ml @ 50 mls/hr TITRATE PRN IV Blood pressure management 07/02/17 13:30 07/02/17 18:49 Sodium Chloride 1,000 ml @ 0 mls/hr [id number] IV 07/02/17 16:00 07/04/17 16:57 Medical Decision Making MDM Remarks 61 y/o male underwent a left cranioplasty for replacement of skull flap on 06/30 presented back to ED with AMS, CT Head 07/02 with moderate left subdural fluid collection, and left temporal parietal intraparenchymal hemorrhage with 6 mm midline shift hypertensive urgency with blood pressure of 218/107 on arrival acute hemorrhagic CVA ?seizures, subtherapeutic depakene levels. EEG negative for seizures f/u CT Head 07/03 with decreasing subdural hemorrhage measuring 7 mm in thickness. Left temporal hemorrhage measures 2.5 x 1.9 cm, left prominent. Left- sided craniotomy again seen. Minimal pneumocephaly. The ventricles are normal for age. No evidence of midline shift, mass lesion or acute infarction. MRI Brain reviewed by Dr. Wong, improved left temporal ICH with thickened left dura Aphasia, improving Plan Plan Remarks neuro exam stable Dr. Wong recommends dc to inpatient rehab/SNF vs home with 24 hour home health care, dw she will set up nursing care through [facility] [facility] and I have discussed with her Mr. Crain to have [address] Wong cleared to dc home with home health care ATC and PT/ST cont antiepileptic meds, cont antihypertensives, he is to follow up with his PCP in 1 weeks for f/u for his hypertension management f/u in office in 7-10 days for staple removal Lydia Gallardo Jul 06, 2017 12:20
--- NOTE | 2017-07-06 12:36 | HHI.FF ---
Face to Face Verification Diagnosis: (1) Hemorrhagic cerebrovascular accident (CVA) (2) History of cranioplasty (3) Dysphasia (4) Hypertension Physical Therapy Order: Evaluate and Treat Speech Therapy Order: To Improve: Speech and communication skills, Cognitive skills Home Health Nursing Order: Medical education Signs/symptoms of disease process Medication education-adverse effect Wound care and dressing changes (Clean wound with antibacterial soap, shower only, no soaking. Shower at least once daily. Keep wound clean and dry. Avoid laying directly on wound for prolonged periods of time. Call Dr. Wong office if there are signs of increased redness, warmth, drainage, fevers or chills. Please return to our office 7-10 days for staple removal.) Nursing assessment with vital signs Home Health Aide Order: To Assist In: Bathing and personal care Instructions: patient needs 24 hour aid I have seen patient Oli Crain on 07/06/17. My clinical findings support the need for the requested home health care services because: Dr. Wong requests 24 hour care for patient, works during the day. Deconditioned w/ increased weakness Med compliance is questionable Limited ability to care for self Impaired cognition/judgement I certify that my clinical findings support that this patient is homebound because: Post-op weakness Impaired cognitive ability/safety Unsafe to leave home unassisted Dr. Wong requests 24 hour care for patient, works during the day. Lydia Gallardo Jul 06, 2017 12:36
--- NOTE | 2017-07-06 12:40 | HHI.DCPOC ---
Discharge Care Plan Diagnosis: (1) History of cranioplasty (2) Dysphasia (3) Hemorrhagic cerebrovascular accident (CVA) (4) Hypertension (5) S/P craniofacial reconstruction Goals to Promote Your Health * To prevent worsening of your condition and complications * To maintain your health at the optimal level Directions to Meet Your Goals Take your medications as prescribed Follow your dietary instruction Follow activity as directed Keep your appointments as scheduled Take your immunizations and boosters as scheduled If your symptoms worsen call your PCP, if no PCP go to Urgent Care Center or Emergency Room Smoking is Dangerous to Your Health. Avoid second hand smoke Call the 24-hour hour crisis hotline for domestic abuse at Lydia Gallardo Jul 06, 2017 12:40
--- NOTE | 2017-07-06 13:26 | HHI.DS ---
Discharge Summary Admission Date Jul 02, 2017 at 00:56 Admitting Diagnosis Acute intracranial hemorrhage Brief History Mr. Crain is a 61 year old male who underwent left frontal temporal parietal cranioplasty with replacement of skull flap on 06/30/17. His surgery went well without complications. He was discharged home yesterday in stable conditions. He was brought back to [facility] ED last night due to worsening mental status. A repeat CT Head shows left subdural fluid collection with left temporal intraparenchymal hemorrhage with 6 mm midline shift. He is currently sedated on Precedex due to agitation. He moves all four extremities but reported to have confusion vs dysphasia. CBC/BMP: 07/04/17 0545 07/06/17 0712 Significant Findings Laboratory Tests Test 07/03/17 20:38 07/04/17 02:24 07/04/17 05:45 07/04/17 07:40 Hemoglobin 8.3 GM/DL (13.0-17.0) Hematocrit 24.8 % (39.0-51.0) Blood Urea Nitrogen 5 MG/DL (7-18) Creatinine 0.56 MG/DL (0.60-1.30) Calcium Level 8.2 MG/DL (8.5-10.1) Chloride Level 108 MEQ/L (98-107) Test 07/04/17 08:25 07/04/17 13:13 07/04/17 20:25 07/05/17 02:10 Test 07/05/17 08:20 07/06/17 00:08 07/06/17 00:09 07/06/17 07:12 Pt Condition on Discharge: Stable Discharge Disposition: Disch w/ Home Health Serv Discharge Instructions DIET: Follow Instructions for: Heart Healthy Diet ADDITIONAL Activity Instructio: Avoid strenuous activities, avoid falls and head trauma. Lydia Gallardo Jul 06, 2017 13:26
[2017-07-06 16:08] VITALS: BP 137/77; PULSE 89; RESP 18; TEMP 98.4; O2SAT 99
== END 2017-07-06 18:31 | disposition home health service (06) | DRG 23 ==
LOC: NEPE 00:43 → NEDA 00:56 → N03A 02:33 → N05A 07-05 19:28
PROVIDERS: ADMIT Neurological Surgery; ATTEND Neurological Surgery
PROC: 00C40ZZ Extirpation of Matter from Intracranial Subdural Space, Open Approach (ICD-10-PCS; principal; 2017-07-02 10:10)
PROC: 30233N1 Transfusion of Nonautologous Red Blood Cells into Peripheral Vein, Percutaneous Approach (ICD-10-PCS; 2017-07-03)
DX: I60.9 Nontraumatic subarachnoid hemorrhage, unspecified (principal); G93.6 Cerebral edema; R47.01 Aphasia; I10 Essential (primary) hypertension; I61.1 Nontraumatic intracerebral hemorrhage in hemisphere, cortical; I25.2 Old myocardial infarction; I25.10 Atherosclerotic heart disease of native coronary artery without angina pectoris; R40.2412 Glasgow coma scale score 13-15, at arrival to emergency department; D64.9 Anemia, unspecified; R47.02 Dysphasia; M19.90 Unspecified osteoarthritis, unspecified site; F12.90 Cannabis use, unspecified, uncomplicated; Z95.5 Presence of coronary angioplasty implant and graft
CPT/HCPCS: 36430; 70450; 70496; 70498; 70553; 80048; 80053; 80164; 80185; 82805; 83930; 84295; 85014; 85018; 85025; 85027; 85610; 85730; 86850; 86900; 86901; 86920; 87641; 88304; 94002; 94150; 95819; A9579; C1713; C9113; J0690; J1100; J1630; J1940; J1953; J2150; J2250; J2270; J2370; J2405; J3010; J3370; J7030; J7050; P9016; Q2009; Q9967

== ENCOUNTER 2018-01-23 16:28 | Emergency (ER) | payer OTHER ==
[~2018-01-23] VITALS: Ht 172.7 cm; Wt 72.0 kg
[~2018-01-23 16:28] MED LIST changes: +ASPI-516 CHEW; -ASPI81CH CHEW; +CARV3.12 PO; +CLOP75TA PO; -HYDR-3533 PO; +LEVE500T8 PO; -NAPR250T PO; +NAPR250T4 PO
[2018-01-23 16:34] VITALS: BP 192/91; PULSE 87; RESP 19; TEMP 97.6; O2SAT 100
[2018-01-23] MEDS ORDERED: SODIUM CHLOR 0.9% 1000 ML INJ 1,000 ML IV SCH (16:54)
[2018-01-23] MEDS ORDERED: SODIUM CHLORIDE 0.9% FLUSH 10 ML FLUSH IV FLUSH PRN (17:00)
[2018-01-23] MEDS ORDERED: TETANUS/DIPHTHERIA TOXOID ADULT 0.5 ML VIAL IM ONE (17:00)
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
[2018-01-23 17:56] LABS: AUTOMATED NEUTROPHIL # 7.3 TH/MM3 (1.8-7.7); BASOPHIL # 0.1 TH/MM3 (0-0.2); BASOPHIL % 0.7 % (0.0-2.0); EOSINOPHIL # 0.2 TH/MM3 (0-0.4); EOSINOPHIL % 1.6 % (0.0-4.0); HEMATOCRIT 38.1 % (39.0-51.0); LYMPH % 22.1 % (9.0-44.0); LYMPHOCYTE # 2.4 TH/MM3 (1.0-4.8); MEAN CELL VOLUME 80.7 FL (80.0-100.0); MEAN CORPUSCULAR HEMOGLOBIN 25.5 PG (27.0-34.0); MEAN CORPUSCULAR HGB CONC 31.6 % (32.0-36.0); MEAN PLATELET VOLUME 9.2 FL (7.0-11.0); MONO % 7.6 % (0.0-8.0); MONOCYTE # 0.8 TH/MM3 (0-0.9); PLATELET COUNT 222 TH/MM3 (150-450); RED BLOOD COUNT 4.72 MIL/MM3 (4.50-5.90); RED CELL DISTRIBUTION WIDTH 18.3 % (11.6-17.2); WHITE BLOOD COUNT 10.7 TH/MM3 (4.0-11.0)
[2018-01-23 18:05] LABS: PROTHROMBIN TIME - PATIENT 10.6 SEC (9.8-11.6)
[2018-01-23 18:16] LABS: ALBUMIN 4.2 GM/DL (3.4-5.0); AST (GOT) 21 U/L (15-37); BLOOD UREA NITROGEN 14 MG/DL (7-18); CALCIUM 9.6 MG/DL (8.5-10.1); CHLORIDE 107 MEQ/L (98-107); CREATININE 1.08 MG/DL (0.60-1.30); GLOMERULAR FILTRATION RATE 70 ML/MIN (>89); GLUCOSE,RANDOM 87 MG/DL (74-106); SODIUM (NA) 139 MEQ/L (136-145)
[2018-01-23 18:26] LABS: ALKALINE PHOSPHATASE 84 U/L (45-117); ALT (GPT) 20 U/L (12-78); TOTAL BILIRUBIN ADULT 0.3 MG/DL (0.2-1.0); TROPONIN I LESS THAN 0.02 NG/ML (0.02-0.05)
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
[2018-01-23 18:57] LABS: BILIRUBIN, URINE NEG (NEG); BLOOD, URINE NEG (NEG); GLUCOSE,URINE NEG (NEG); KETONE, URINE TRACE mg/dL (NEG); MUCUS URINE FEW /lpf (OCC); NITRITE,URINE NEG (NEG); PH, URINE 6.5 (5.0-8.5); URINE COLOR LIGHT-YELLOW (YELLW/STRAW); URINE LEUKOCYTE ESTERASE NEG (NEG)
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
--- NOTE | 2018-01-24 22:30 | EKG ---
Date Performed: 01/23/2018 Time Performed: 17:18:22 PTAGE: 62 years EKG: Sinus rhythm POSSIBLE INFERIOR MYOCARDIAL INFARCTION ABNORMAL ECG PREVIOUS TRACING : 06/29/2017 08.44 Since the previous tracing, no significant change noted DOCTOR: Jared Liang Interpretating Date/Time 01/24/2018 22:29:16
== END 2018-01-23 21:31 | disposition home or self-care (01) ==
LOC: NEPC 16:28 → NEPJ 21:31
DX: F43.20 Adjustment disorder, unspecified (principal); S40.811A Abrasion of right upper arm, initial encounter; F17.200 Nicotine dependence, unspecified, uncomplicated; I10 Essential (primary) hypertension; I25.10 Atherosclerotic heart disease of native coronary artery without angina pectoris; R94.31 Abnormal electrocardiogram [ECG] [EKG]; V89.2XXA Person injured in unspecified motor-vehicle accident, traffic, initial encounter; Z23 Encounter for immunization; Z79.02 Long term (current) use of antithrombotics/antiplatelets; Z79.899 Other long term (current) drug therapy; Z86.73 Personal history of transient ischemic attack (TIA), and cerebral infarction without residual deficits
CPT/HCPCS: 70450; 80053; 80307; 81001; 82140; 82550; 84443; 84484; 85025; 85610; 85730; 90471; 90714; 93005; 99285; J7030

== ENCOUNTER 2018-01-29 11:50 | Emergency (ER) | payer OTHER ==
[~2018-01-29] VITALS: Ht 172.7 cm; Wt 75.0 kg
[2018-01-29 12:31] VITALS: BP 184/84; PULSE 72; RESP 20; TEMP 97.8; O2SAT 99
[2018-01-29] MEDS ORDERED: MUPI2OIN TOPICAL (13:38)
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
== END 2018-01-29 14:02 | disposition home or self-care (01) ==
LOC: NEPD 11:50
DX: S41.111A Laceration without foreign body of right upper arm, initial encounter (principal); V89.2XXA Person injured in unspecified motor-vehicle accident, traffic, initial encounter; W22.10XA Striking against or struck by unspecified automobile airbag, initial encounter
CPT/HCPCS: 99283